=== PATIENT | male | born 1965 ===

== ENCOUNTER 2020-10-24 15:46 | Outpatient (REF) | payer MEDICAID, SELFPAY ==
[2020-10-24 16:22] LABS: COVID-19 Test Negative (Negative)
== END 2020-10-24 15:47 | disposition home or self-care (01) ==
LOC: HO.LAB 15:46
PROVIDERS: Visit Provider Internal Medicine
DX: Z20.822 Contact with and (suspected) exposure to COVID-19 (principal)
CPT/HCPCS: 36415; 87635

== ENCOUNTER 2023-02-04 14:51 | Outpatient (REF) | payer MEDICAID, SELFPAY ==
[2023-02-04 16:09] LABS: Hematocrit 46.2 % (42.0-52.0); Hemoglobin 15.5 g/dl (14.0-18.0)
[2023-02-04 16:20] LABS: Alanine Aminotransferase 45 U/L (0-40); Albumin Level 4.4 g/dL (3.5-5.0); Alkaline Phosphatase 80 U/L (39-117); Amylase 74 U/L (28-100); Aspartate Amino Transferase 28 U/L (5-37); Bilirubin Direct 0.2 mg/dL (0.0-0.5); Bilirubin Total 0.7 mg/dL (0.0-1.0); Cholesterol 205 mg/dL (<200); HDL Cholesterol 43 mg/dL (>40); LDL Cholesterol Calculated 135 mg/dL (<100); Lipase 16 U/L (8-78); Total Protein 7.9 g/dL (6.5-8.0); Triglycerides 139 mg/dL (<150)
[2023-02-05 07:33] LABS: Estimated Average Glucose 120 mg/dL; Hemoglobin A1C 152.6952 umol/L; Hemoglobin A1c % 5.8 % (<6.0)
== END 2023-02-04 14:52 | disposition home or self-care (01) ==
LOC: HO.HHCL 14:51
PROVIDERS: Visit Provider Nurse Practitioner Primary Care
DX: Z00.00 Encounter for general adult medical examination without abnormal findings (principal); Z13.220 Encounter for screening for lipoid disorders; R10.13 Epigastric pain; Z13.1 Encounter for screening for diabetes mellitus
CPT/HCPCS: 36415; 80061; 80076; 82150; 83036; 83690; 85014; 85018

== ENCOUNTER 2023-06-19 16:19 | Outpatient (REF) | payer MEDICAID, SELFPAY ==
--- NOTE | ~2023-06-19 | XR_ITS ---
EXAMINATION: XR CHEST CLINICAL INFORMATION: Cough, chills and shortness of breath. COMPARISON: None available. TECHNIQUE: 2 views of the chest were obtained. FINDINGS: Lungs are well-inflated and clear. Trachea is midline in position. No interstitial disease, consolidation or mass. No pleural effusion or pneumothorax. Cardiac silhouette and pulmonary vessels are normal in size. The mediastinum and erna have normal contour. The opacity at the anterior left base corresponds to the paracardiac fat pad. The visualized bones and upper abdomen are unremarkable. XR/XR chest 2V IMPRESSION: Lungs have a normal appearance. No radiographic evidence of pneumonia.
== END 2023-06-19 16:20 | disposition home or self-care (01) ==
LOC: HO.XRAY 16:19
PROVIDERS: Visit Provider Internal Medicine Geriatric Medicine
DX: J45.41 Moderate persistent asthma with (acute) exacerbation (principal); R06.02 Shortness of breath; R09.89 Other specified symptoms and signs involving the circulatory and respiratory systems
CPT/HCPCS: 71046

== ENCOUNTER 2023-06-26 13:38 | Outpatient (REF) | payer MEDICAID, SELFPAY | END 2023-06-26 13:39 | disposition home or self-care (01) | LOC: HO.HAP 13:38 | PROVIDERS: Visit Provider Emergency Medicine | DX: Z13.89 Encounter for screening for other disorder (principal) ==

== ENCOUNTER 2023-06-28 14:23 | Outpatient (REF) | payer MEDICAID, SELFPAY | END 2023-06-28 14:24 | disposition home or self-care (01) | LOC: HO.HAP 14:23 | PROVIDERS: Visit Provider Emergency Medicine | DX: Z46.1 Encounter for fitting and adjustment of hearing aid (principal) | CPT/HCPCS: V5266; V5299 ==

== ENCOUNTER 2023-08-01 11:45 | Outpatient (REF) | payer MEDICAID, SELFPAY ==
--- NOTE | 2023-08-01 12:51 | MHC.AU.HA3 ---
Hearing Instrument Follow-Up- Binaural Date of Visit: 08/01/23 Right Ear: Satya, Model, Color, Serial Number: Robert Quinones [id number] SN: [id number] Color:Black Hot Walker Repair Warranty: 10/04/2015 Hot Walker Loss and Damage Warranty: 10/03/2014 [facility] Service Plan: Battery Size: 312 Collision Estimator/Slim Tube: 2xS Earmold/Dome/CShell/SlimTip:Medium closed dome with retention tail Type of Wax Guard: CeruStop Dispensed By: [facility] Date of Fittin07/21/2013 Left Ear: Make, Model, Color, Serial Number: Robert Quinones [id number] SN: [id number] Color: Black Hot Walker Repair Warranty: 10/04/2015 Hot Walker Loss and Damage Warranty: 10/03/2014 [facility] Service Plan: Battery Size: 312 Collision Estimator/Slim Tube: 2xS Earmold/Dome/CShell/SlimTip: Medium closed dome with retention tail Type of Wax Guard: CeruStop Dispensed By: [facility] Date of Fittin07/21/2013 Follow-Up Summary: Left aid dropped off with parking lot laborer broken off at attachment point to hearing aid. No 2xS in stock. Ordered from [employer]. Aid is in repair drawer waiting for parking lot laborer. Recommendations: Recommendations: Patient will be contacted when materials have arrived. Diagnosis Code(s): Primary Diagnosis: H90.3 Signature: Provider: Soto Brown, [facility]
== END 2023-08-01 11:46 | disposition home or self-care (01) ==
LOC: HO.HAP 11:45
PROVIDERS: Visit Provider Emergency Medicine
DX: Z13.89 Encounter for screening for other disorder (principal)

== ENCOUNTER 2023-08-07 13:44 | Outpatient (REF) | payer MEDICAID, SELFPAY | END 2023-08-07 13:45 | disposition home or self-care (01) | LOC: HO.HAP 13:44 | PROVIDERS: Visit Provider Emergency Medicine | DX: Z46.1 Encounter for fitting and adjustment of hearing aid (principal); H90.3 Sensorineural hearing loss, bilateral | CPT/HCPCS: 92592; V5299 ==

== ENCOUNTER 2023-09-06 13:57 | Outpatient (REF) | payer MEDICAID, SELFPAY ==
--- NOTE | ~2023-09-06 | XR_ITS ---
EXAMINATION: XR CHEST CLINICAL INFORMATION: Patient states asthma for 2 years and not getting better. COMPARISON: 06/19/2023 TECHNIQUE: 2 views of the chest were obtained. FINDINGS: Lung volumes are low. There is no gross pneumothorax. Cardiomediastinal silhouette appears similar, allowing for lower lung volumes. There appears to be increased prominence of diffuse interstitial lung markings although this could be accentuated by low lung volumes; correlation with clinical exam recommended to determine further management, particularly if there is concern for atypical infectious/inflammatory process or mild vascular congestion. No pleural effusion. Mild degenerative changes in the thoracic spine. XR/XR chest 2V IMPRESSION: There appears to be increased prominence of diffuse interstitial lung markings although this could be accentuated by low lung volumes; correlation with clinical exam recommended to determine further management, particularly if there is concern for atypical infectious/inflammatory process or mild vascular congestion.
== END 2023-09-06 13:58 | disposition home or self-care (01) ==
LOC: HO.XRAY 13:57
PROVIDERS: Visit Provider Registered Nurse
DX: R05.3 Chronic cough (principal)
CPT/HCPCS: 71046

== ENCOUNTER 2023-11-07 13:39 | Outpatient (AMB) | payer MEDICAID, SELFPAY ==
[2023-11-07 14:24] VITALS: BP 120/74; PULSE 70; O2SAT 98; BMI 32.6
--- NOTE | 2023-11-07 14:24 | A.OFFVIS_ITS ---
Vital Signs 11/07/23 14:24 Height 5 ft 6.5 in Weight 205 lb 0.478 oz BMI 32.6 BP 120/74 Blood Pressure Location Lt brachial Position Sitting Pulse 70 Pulse Source Pulse Oximeter Pulse Oximetry (%) 98 Oxygen Delivery Method Room Air Intake Visit Reasons: Asthma Intake Note: pt is here as a new patient for asthma, and question of Sleep apnea . He has had flare ups, pt has a nebulizer and albuterol hfa. Glassine Machine Tender Required: No Allergies No Known Allergies Allergy (Mild, Unverified 11/07/23 15:10) NONE Medication List - Last Reconciled 11/07/23 by Raghav Lamb MD albuterol sulfate mg inhalation Q4-6H PRN albuterol sulfate 90 mcg/actuation (Ventolin HFA) 2 puffs inhalation Q6H atorvastatin 10 mg PO BEDTIME budesonide-formoterol 80-4.5 mcg/actuation (Symbicort) 2 puffs inhalation BID montelukast 10 mg PO DAILY omeprazole 20 mg PO BID sildenafil (Viagra) 100 mg PO DAILY PRN Do you need a note to return to daycare/school/sports/work: No HPI HPI Asthma: Details: 58 years old gentleman is being seen for the 1st time for bronchial asthma and also for possible sleep apnea. He is a musician by profession, most deep plays piano, and goes with bands off and on. Due to hearing loss he is retired on disability. He is single but now for the past 9 months has a girlfriend living with him. He gives history of bronchial asthma since childhood. No history of any prolonged attacks or hospitalizations. His symptoms are worse in early summer and late summer, but he is relatively better during winter time. Over the years he has been using albuterol inhaler or in the nebulizer as needed. Currently he has the Symbicort 80-4.5 and montelukast 10 mg daily on his list of meds but he does not use them all as his symptoms are worse. He does get short of breath if he has to walk up hill or climbs stairs. He has very little cough. He is a non-cigarette smoker but admits of smoking weed a few times every day . For the past few years he has put on weight, almost 20-30 lb, and he has history of waking up at night with choking feeling. According to his girlfriend he does snore at night. He feels tired during the daytime, and tends to doze of when he is playing piano . Also in the afternoon and late evenings he feels very sleepy. *SPEAKS A FEW WORDS OF UKRAINIAN / LEARNED WHEN HE WAS WORKING AT [employer]. REPLACED BY [facility] Medical History (Updated 11/07/23 @ 15:28 by Raghav Lamb MD) Asthma KVNG (obstructive sleep apnea) Somnolence, daytime Social History Patient Tobacco Use Status: Former Tobacco user Review of Systems Const All systems reviewed & are unremarkable except as noted in HPI and below Eyes Reports no additional complaints ENT Denies Normal hearing present (Significant hearing loss and he uses hearing aids) Card Denies chest pain, Denies syncope, Denies irregular heart rhythm and Denies leg edema Resp Reports as per HPI GI Reports no additional complaints Reports erectile dysfunction Musc Reports no additional complaints Skin/Breast Reports system reviewed and no additional complaints, except as documented Neuro Denies Normal hearing present (Significant hearing loss and he uses hearing aids) and Denies syncope Psych Reports no additional complaints Endo Reports no additional complaints Physical Exam Vital Signs: Last Vital Signs Pulse 70 11/07/23 14:24 BP 120/74 11/07/23 14:24 Pulse Ox 98 11/07/23 14:24 Oxygen Delivery Method Room Air 11/07/23 14:24 BMI result Body Mass Index 32.6 Const General: healthy appearing (Except being overweight), comfortable, no acute distress, alert and awake Orientation/consciousness: patient oriented x3 HEENT Head: Yes normal to inspection General nose exam: No nasal polyps present and No nasal discharge present Face and sinus: Yes sinuses nontender Mouth: oropharynx abnormals (Tongue is placed back, Abdullahi pharynx narrow Mallampati class 4 ) Throat: Yes posterior oropharynx normal Eyes General: appearance normal, both eyes and all related structures Neck Neck: Yes normal visual inspection, Yes no lymphadenopathy, Yes trachea midline, Yes no JVD and Yes other (Neck size 16-1/2 inch) Thyroid: Thyroid normal Chest Chest palpation & inspection: normal inspection of the chest, normal palpation of entire chest wall and no tenderness Resp Other: Percussion note is resonant, breath sounds are slightly distant, but mostly clear. No wheezes or rhonchi are heard. Cardio Palpation: normal PMI Rate: regular rate Rhythm: regular rhythm Heart sounds: no gallops and no murmurs Peripheral pulses: Peripheral pulses 2+ throughout GI Palpation (GI): Soft to palpation, nontender, No hepatosplenomegaly present and no masses Auscultation: normal bowel sounds Back/Spine/Pelvis Thoracic/Lumbar Spine: thoracic and lumbar spine normal to inspection Skin General skin exam: no rashes or lesions noted Neuro General: patient oriented x3, gait normal and no focal motor deficits Cranial nerves: No Normal hearing present (Significant hearing loss and he uses hearing aids) Extrem General: Yes normal to inspection, Yes no clubbing, cyanosis or edema and Yes no calf tenderness Psych Appearance: grossly normal and well kempt Speech and movement: Normal speech and movement present Assessment & Plan Assessment & Plan (1) Somnolence, daytime: Comment: Patient does feel tired with, foggy brain and tendency to fall asleep especially in the afternoons. Code(s): R40.0 - Somnolence Category: Medical Plan: The needs to be checked for sleep apnea . (2) KVNG (obstructive sleep apnea): Comment: He is moderately overweight, has narrow oropharynx, history of waking up with choking feeling at night , History of sleepiness during the daytime. These features are all suggestive of obstructive sleep apnea. Code(s): G47.33 - Obstructive sleep apnea (adult) (pediatric) Category: Medical Plan: Home-based sleep study is ordered (3) Asthma: Comment: Chronic intermittent bronchial asthma, probably due to environmental allergies. Mild and controlled at this time. Code(s): J45.909 - Unspecified asthma, uncomplicated Category: Medical Plan: Complete pulmonary function test is ordered. Will decide about appropriate meds after the PFT results In the meantime use albuterol HFA 2 puffs Q 4-6 hours p.r.n. when outdoors Or albuterol in the nebulizer Q 4-6 hours p.r.n. when at home. Do not use Symbicort or montelukast at this time Orders: Orders PFT pulmonary function test Today J45.909 - Unspecified asthma, uncomplicated RT home sleep study Today G47.33 - Obstructive sleep apnea (adult) (pediatric), R40.0 - Somnolence Coding Level of Care Code New Pt Level 4 (04461) Diagnoses Somnolence, daytime R40.0 KVNG (obstructive sleep apnea) G47.33 Asthma J45.909
== END 2023-11-07 15:17 | disposition home or self-care (01) ==
PROVIDERS: PCP Emergency Medicine; Referring Provider Registered Nurse; Visit Provider Internal Medicine
DX: R40.0 Somnolence (principal); G47.33 Obstructive sleep apnea (adult) (pediatric); J45.909 Unspecified asthma, uncomplicated
CPT/HCPCS: 99204

== ENCOUNTER → 2023-11-07 13:39 | Outpatient (BNVA) | payer MEDICAID, SELFPAY | PROVIDERS: PCP Emergency Medicine; Referring Provider Registered Nurse; Visit Provider Internal Medicine | DX: J45.909 Unspecified asthma, uncomplicated (principal); G47.33 Obstructive sleep apnea (adult) (pediatric); R40.0 Somnolence; F12.90 Cannabis use, unspecified, uncomplicated; Z79.899 Other long term (current) drug therapy | CPT/HCPCS: 99202 ==

== ENCOUNTER 2023-12-04 15:14 | Outpatient (REF) | payer MEDICAID, SELFPAY | END 2023-12-04 15:15 | disposition home or self-care (01) | LOC: HO.HAP 15:14 | PROVIDERS: Visit Provider Nurse Practitioner Primary Care | DX: Z13.89 Encounter for screening for other disorder (principal) ==

== ENCOUNTER 2024-03-19 13:18 | Outpatient (REF) | payer MEDICAID, SELFPAY ==
--- NOTE | 2024-03-19 14:16 | MHC.AU.MED ---
Medical Clearance for Hearing Instrumentation Date: 03/19/24 Patient Name: Chaparro Jane Date of : 1965 Primary Care Provider: Migdalia Cox NP We have seen your patient on 03/19/24 and have determined that they are a candidate for amplification (See accompanying report). Specifically, they would benefit from: Hearing aid use in both ears There is a statute that addresses Medical Evaluation Requirements prior to fitting a patient with a hearing aid. According to [place] statute 265 CMR:6.03(1), (a) General. Except as provided in 265 CMR 6.03(1)(b), a hearing care practitioner shall not sell a hearing aid unless the prospective user has presented to the hearing care practitioner a written statement signed by a licensed physician that states that the patient's hearing loss has been medically evaluated and the patient may be considered a candidate for a hearing aid. The medical evaluation must have taken place within the preceding six months. Please note: Due to the [place] Statute referenced above, we cannot accept a signature other than that of a licensed physician. WEIGHT LOSS PHYSICIAN and PA signatures cannot be accepted. I am in agreement with the above recommendation. There is no medical contraindication for hearing instrumentation. Physician Signature Date Physician Name (Printed)
--- NOTE | 2024-03-19 14:36 | MHC.AU.HA1 ---
Hearing Aid Evaluation Date of Visit: 03/19/24 Historical Information: Description of Hearing: Mild sloping to moderately-severe sensorineural hearing loss rising to normal hearing, bilaterally Current personal amplification information: Phonak Audeo [id number] fit in August 2013 Summary: Accompanied by girlfriend, Marisela. Ready for new HAs. Left RITTER in need of repair as noted in December 2023 (still in Repair Drawer). Right RITTER reportedly stopped working yesterday, did not bring to this appointment. Given age of current devices, new HAs recommended. Chaparro opted for same style, rechargeable HAs. Will start with dome but discussed adding EMs, if needed. Hearing Aid Prescription: Based on the individual?s shared listening needs, communication environments, dexterity, desire for connectivity, and personal preferences, the following prescription for amplification has been made: Right ear: Make, Model, Color: Phonak Audeo I50-R Color: Black Battery Size: Rechargeable Rn Telephonic/Slim Tube: 2M Type of Earmold/Dome/CShell/SlimTip: Small power dome Left ear: Left ear prescription to be same as Right Hearing Aid above: Make, Model, Color: Phonak Audeo I50-R Color: Black Battery Size: Rechargeable Rn Telephonic/Slim Tube: 2M Type of Earmold/Dome/CShell/SlimTip: Small power dome Accessories/Assistive Technology: Insurance Claim Representative Plan of Care: Patient wishes to purchase hearing aids as prescribed Action Taken/Action Needed: Medical Clearance to be requested from PCP/ENT. Hearing Instrument Fitting to be scheduled when materials arrive Primary Diagnosis: H90.3 Bilateral Sensorineural Hearing Loss Signature: Provider: Soto Callaway, [facility]
== END 2024-03-19 13:19 | disposition home or self-care (01) ==
LOC: HO.SH 13:18
PROVIDERS: Visit Provider Nurse Practitioner Primary Care
DX: Z01.118 Encounter for examination of ears and hearing with other abnormal findings (principal); Z46.1 Encounter for fitting and adjustment of hearing aid; H90.3 Sensorineural hearing loss, bilateral
CPT/HCPCS: 92557; 92591

== ENCOUNTER 2024-04-02 12:43 | Outpatient (REF) | payer MEDICAID, SELFPAY ==
--- NOTE | 2024-04-02 13:42 | MHC.AU.HA2 ---
Hearing Instrument Fitting- Adult- Binaural Date of Visit: 04/02/24 Hearing Instruments Dispensed: Right Ear: Satya, Model, Color, Serial Number: Robert Quinones [id number] SN: [id number] Color: Black Emr Trainer Repair Warranty: 05/01/2027 Emr Trainer Loss and Damage Warranty: 05/01/2027 [facility] Service Plan: 04/02/2025 Battery Size: Rechargeable Core Machine Operator/Slim Tube: 2M Earmold/Dome/CShell/SlimTip: Small power dome (no retention tail) Type of Wax Guard: CeruStop Left Ear: Make, Model, Color, Serial Number: Robert Quinones [id number] SN: [id number] Color: Black Emr Trainer Repair Warranty: 04/23/2027 Emr Trainer Loss and Damage Warranty: 04/23/2027 [facility] Service Plan: 04/02/2025 Battery Size: Rechargeable Core Machine Operator/Slim Tube: 2M Earmold/Dome/CShell/SlimTip: Small power dome (no retention tail) Type of Wax Guard: CeruStop Accessories/Assistive Technology: [employer]ak [employer] Service Station Manager Ease SN: [id number] Summary of Fitting: Performed electroacoustic analysis prior to appointment. Ran feedback analyzer and real ear measures. Comfortable at real ear settings. Reviewed care, use, and rechargeability including manually turning on/off, VC use, and changing domes and wax guards. As a previous RITTER user, otherwise familiar with general maintenance, insertion/removal, etc. Also noticed immediate decrease in intensity of tinnitus. Paired to cellphone. Chaparro very grateful for HAs. Gave old, unrepaired left Audeo [id number] hearing aid, which was dropped off in Dec 2023, back to Chaparro. Scheduled follow up; however, may cancel if all is well. Recommendations: A hearing instrument follow-up was scheduled. Diagnosis Code(s): Primary Diagnosis: H90.3 Bilateral Sensorineural Hearing Loss Signature: Provider: Soto Callaway, [facility]
--- OUTSIDE RECORDS SUMMARY | 2024-04-02 16:36 | XMS_ITS | Encounter Summary ---
Author Organization [employer] Address [address] [facility] 7 [place] [address] Care Team Providers Care Termite Control Service Representative Name Role Phone Migdalia Cox Primary Care Provider [phone] Reason for Visit * Reason Onset Date Comments Created in error 09/17/2023 Encounter Details Date Type Department Care Team ([facility] st Contact Info) Description 09/17/2023 Telephone [facility] MEDICINE [address] [place], [place] [phone] Migdalia Cox ANP [address] [place] [address] Created in error Social History Tobacco Use Types Packs/Day Years Used Date Smoking Tobacco: Every Day Passive Smoke Exposure: Never Smokeless Tobacco: Never Depression Answer Date Recorded Patient Health Questionnaire-9 Score 16 01/28/2023 Patient Health Questionnaire-9 Score 16 01/28/2023 Last PHQ-9: Questionnaire Data Not on file 1 03/30/2022 Housing Stability Answer Date Recorded What is your housing situation today? I have ninoska major 01/28/[address] you li ve. Do you have problems with any of the following? None of the above 01/28/2023 Food Insecurity Answer Date Recorded Within the past 12 months, y ou worried that your food would run out before you got money to buy more: Never True 01/28/2023 Within the past 12 months,th e food you bought just didn't last and you didn't have enough money to get more: Never True Transportation Answer Date Recorded In the past 12 months, has l ack of transportation kept you from medical appts, meetings, work or from getting things needed for daily living? No 01/28/2023 Utilities Answer Date Recorded In the past 12 months, has t he electric, gas, oil or water company threatened to shut off services in your home? No 01/28/2023 Depression Answer Date Recorded Patient Health Questionnaire-2 Score 6 01/28/2023 Sex and Gender Information Value Date Recorded Sex Assigned at Male 01/01/2022 10:14 AM EDT Legal Sex Male 10:14 AM EDT Gender Identity Male 01/01/2022 10:14 AM EDT Sexual Orientation Straight 01/01/2022 10 :14 AM EDT documented as of this encounter Plan of Treatment Not on file documented as of this encounter Visit Diagnoses Not on filedocumented in this encounter Additional Health Concerns Assessment Noted Time PHQ-9 Depression Total Score: 16 023 2:01 PM EST documented as of this encounter Care Teams Termite Control Service Representative Relationship Specialty Start Date End Date Migdalia Cox ANP [address] [place] [id number] PCP - General Family Medicine 12/17/22 documented as of this encounter
--- OUTSIDE RECORDS SUMMARY | 2024-04-02 16:36 | XMS_ITS | Encounter Summary ---
Author Organization [employer] Address [address] [facility] 7t [place] [address] Care Team Providers Care Sales Agent Marine Insurance Name Role Phone Migdalia Cox Primary Care Provider [phone] Reason for Visit * Reason Comments Med Refill Encounter Details Date Type Department Care Team ([facility] Contact Info) Description 09/16/2023 Refill [facility] MEDICINE [address] [place], [place] [phone] Migdalia Cox ANP [address] [place] [address] Impotence of organic origin Social History Tobacco Use Types Packs/Day Years [...] documented as of this encounter Visit Diagnoses Diagnosis Impotence of organic origin documented in this encounter Additional Health Concerns Assessment Noted Time PHQ-9 Depression Total Score: 16 023 2:01 PM EST documented as of this encounter Care Teams Sales Agent Marine Insurance Relationship Specialty Start Date End Date Migdalia Cox ANP [address] [place] [phone] PCP - General Family Medicine 12/17/22 documented as of this encounter
--- OUTSIDE RECORDS SUMMARY | 2024-04-02 16:36 | XMS_ITS | Encounter Summary ---
Author Organization [employer] Address [address] [facility] 7t [place] [address] Care Team Providers Care Postal Service Mail Processor Name Role Phone Migdalia Cox Primary Care Provider [phone] Reason for Visit * Reason Comments Med Refill Encounter Details Date Type Department Care Team ([facility] Contact Info) Description 08/30/2023 Refill [facility] MEDICINE [address] [place], [place] [phone] Migdalia Cox ANP [address] [place] [address] Impotence of organic origin Social History Tobacco [...] documented as of this encounter Care Teams Postal Service Mail Processor Relationship Specialty Start Date End Date Migdalia Cox ANP [address] [place] [id number] PCP - General Family Medicine 12/17/22 documented as of this encounter
--- OUTSIDE RECORDS SUMMARY | 2024-04-02 16:36 | XMS_ITS | Encounter Summary ---
Author Organization [employer] Address [address] [place] [address] 7 [place] [address] Care Team Providers Care Dowel Pin Man Name Role Phone Migdalia Cox Primary Care Provider [phone] Reason for Visit * Reason Comments Med Refill Encounter Details Date Type Department Care Team ([facility] Contact Info) Description 04/16/[address] [facility] MEDICINE [address] [place], [place] [phone] Migdalia Cox ANP [address] [place] [address] Impotence of organic origin Social History Tobacco Use Types Packs/Day Years Used Date Smoking Tobacco: Never Passive Smoke Exposure: Never Smokeless Tobacco: Never [...] documented as of this encounter Care Teams Dowel Pin Man Relationship Specialty Start Date End Date Migdalia Cox ANP [address] [place] [phone] PCP - General Family Medicine 12/17/22 documented as of this encounter
--- OUTSIDE RECORDS SUMMARY | 2024-04-02 16:36 | XMS_ITS | Encounter Summary ---
Author Organization [employer] Address [address] [facility] 7t [place] [address] Care Team Providers Care Resource Development Director Name Role Phone Migdalia Cox Primary Care Provider [phone] Reason for Visit * Reason Comments Med Refill Encounter Details Date Type Department Care Team ([facility] [place] [facility] Contact Info) Description 12/27/2023 Refill [facility] MEDICINE [address] [place], [place] [phone] Vanesa John MD [address] [place], [place] [phone] Mild persistent asthma without complication Social History Tobacco Use Types Packs/Day Years Used Date Smoking Tobacco: Former Cigarettes Passive Smoke Exposure: Never Smokeless Tobacco: Never Alcohol Use Standard Drinks/Week Comments Never 0 (1 standard drink = 0.6 oz pur e alcohol) Depression Answer Date Recorded Patient Health Questionnaire-9 Score 4 12/20/2023 Patient Health Questionnaire-9 Score 4 12/20/2023 Last PHQ-9: Questionnaire Data Not on file 1 Housing Stability Answer Date Recorded What is [...] Answer Date Recorded Patient Health Questionnaire-2 Score 1 12/20/2023 Sex and Gender Information Value Date Recorded Sex Assigned at Male 01/01/2022 10:14 AM EDT Legal Sex Male 10:14 AM EDT Gender Identity Male 01/01/2022 10:14 AM EDT Sexual Orientation Straight 01/01/2022 10 :14 AM EDT documented as of this encounter Plan of Treatment Not on file documented as of this encounter Visit Diagnoses Diagnosis Mild persistent asthma without complication documented in this encounter Additional Health Concerns Assessment Noted Time PHQ-9 Depression Total Score: 4 12/20/19 24 3:05 PM EDT documented as of this encounter Care Teams Resource Development Director Relationship Specialty Start Date End Date Migdalia Cox ANP [address] [place] [phone] PCP - General Family Medicine 12/17/22 documented as of this encounter
--- OUTSIDE RECORDS SUMMARY | 2024-04-02 16:36 | XMS_ITS | Encounter Summary ---
Author Organization [employer] Address [address] [place] [address] 7 [place] [address] Care Team Providers Care Caster Helper Name Role Phone Migdalia Cox Primary Care Provider [phone] Reason for Visit * Reason Onset Date Comments Durable Medical Equipment 09/23/2023 Encounter Details Date Type Department Care Team ([facility] st Contact Info) Description 09/23/2023 Telephone [facility] [address] [place], [place] [phone] Migdalia Cox ANP 230 [place] [address] Durable Medical Equipment Social History Tobacco Use Types Packs/Day Years [...] AM EDT documented as of this encounter Miscellaneous Notes * Telephone Encounter - Patrice Micah - 09/23/2023 4:45 PM EDT Tc from spouse calling to remind pcp of Nebulizer machine, she wants to make sure pcp is aware of request. If any questions and or for further discussion you can contact pt/spouse at [phone]. documented in this encounter Plan of Treatment Not on file documented as of this encounter Visit Diagnoses Not on filedocumented in this encounter Additional Health Concerns Assessment Noted Time PHQ-9 Depression Total Score: 16 023 2:01 PM EST documented as of this encounter Care Teams Caster Helper Relationship Specialty Start Date End Date Migdalia Cox ANP [address] [place] [address] PCP - General Family Medicine 12/17/22 documented as of this encounter
--- OUTSIDE RECORDS SUMMARY | 2024-04-02 16:36 | XMS_ITS | Clinical Summary ---
Author Organization [facility] Address [address] [place] [address] Care Team Providers Care Looping Inspector Name Role Phone Unavailable Primary Care Provider Unavailabl e Social History Tobacco Use Types Packs/Day Years Used Date Smoking Tobacco: Never Assessed Sex and Gender Information Value Date Recorded Sex Assigned at Not on file Gender Identity Not on file Sexual Orientation Not on file Plan of Treatment Health Maintenance Due Date Last Done Comments DTaP,Tdap,and Td Vaccines (1 - Tdap) 09/17/1986 Hepatitis B Vaccines (1 of 3 - 19+ 3-dose series) 09/17/1986 Zoster Vaccines (1 of 2) 09/17/2017 Cholesterol Screening (Lipid Panel) 01/31/2022 Colorectal Cancer Screening: Colonoscopy 01/31/2022 Depression Screening 01/31/2022 HIV Screening 01/31/2022 Hepatitis C Screening 01/31/2022 Social Influencers of Health Screening 01/31/2022 COVID-19 Vaccine (2023-2 5 season) 2023 Influenza Vaccine (#1) 2023 HIB Vaccines Aged Out No longer eligi ble based on patient's age to complete this topic HPV Vaccines Aged Out No longer eligi ble based on patient's age to complete this topic Hepatitis A Vaccines Aged Out No long er eligible based on patient's age to complete this topic IPV Vaccines Aged Out No longer eligi ble based on patient's age to complete this topic MMR Vaccines Aged Out No longer eligi ble based on patient's age to complete this topic Meningococcal ACWY Vaccine Aged Out N o longer eligible based on patient's age to complete this topic Pneumococcal Vaccine: Pediat rics (0 to 5 Years) and At-Risk Patients (6 to 64 Years) Aged Out No longer eligible b ased on patient's age to complete this topic RSV Immunization Patients Un silvia 20 months Aged Out No longer eligible b ased on patient's age to complete this topic Varicella Vaccines Aged Out No longer eligible based on patient's age to complete this topic
--- OUTSIDE RECORDS SUMMARY | 2024-04-02 16:36 | XMS_ITS | Clinical Summary ---
Author Organization [employer] Address [address] [place] [address] 7t [place] [address] Care Team Providers Care Household Coordinator Name Role Phone Migdalia Cox Primary Care Provider [phone] Allergies No known active allergies Medications Blood Pressure Monitoring (Omron 3 Series BP Monitor) device USE TO CHECK BLOOD PRESSURE DAILY 2 Active fluticasone (Flonase) 50 MCG/ACT nasal spray Administer 1 spray into affected nostril(s) every 12 (twelve) hours. 1 Active budesonide-formot tirso (Symbicort) 80-4.5 MCG/ACT inhalerIndication s:Asthma, unspecified asthma severity, unspecified whether complicated, unspecified whether persistent Inhale 2 puffs twie daily. Rinse mouth with water after use to reduce aftertaste and incidence of candidiasis. Do not swallow. 1 each 4 Active montelukast (Singulair) 10 MG tabletIndications :Moderate persistent asthma without complication Take 1 tablet (10 mg) by mouth Once per day. 90 tablet 3 4 09/18/19 25 Active atorvastatin (Lipitor) 10 MG tabletIndications :Dyslipidemia TAKE 1 TABLET BY MOUTH AT BEDTIME 90 tablet 3 4 Active omeprazole (PriLOSEC) [address] capsuleIndication s:Peptic ulcer disease TAKE 1 CAPSULE (20 MG) BY MOUTH BEFORE BREAKFAST AND BEFORE EVENING MEAL. DO NOT CRUSH OR CHEW. 180 capsule 1 4 Active albuterol (Ventolin HFA) 108 (90 Base) MCG/ACT inhalerIndication s:Moderate persistent asthma without complication,Dysl ipidemia Inhale 2 puffs every 6 (six) hours if needed for wheezing. 18 g 3 4 Active albuterol (2.5 MG/3ML) 0.083% nebulizer solution INHALE 1 AMPULE USING A NEBULIZER EVERY 4 TO 6 HOURS NEEDED 90 mL 3 4 Active sildenafil (Viagra) 100 MG tabletIndications :Impotence of organic origin TAKE 1 TABLET 1 HOUR BEFORE SEXUAL RELATIONS ONCE DAILY NEEDED. 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 Resolved Problems Problem Noted Date Diagnosed Date Resolved Date Combined drug dependence excluding opioids 08/29/2011 01/23/2024 Encounters Date Type Department Care Team Description 03/06/2024 Patient Outreach [facility] [address] [place] [address] Migdalia Cox ANP Pre-visit Planning (Pre-visit planning - LVM ) 02/17/2024 Telephone [facility] [address] [place] [address] Migdalia Cox ANP 02/17/2024 Telephone [facility] [address] [place] [address] Migdalia Cox ANP 02/06/2024 Telephone [facility] [address] [place] [address] Migdalia Cox ANP Referral 01/18/2024 Refill [facility] [address] [place] [address] Migdalia Cox ANP Impotence of organic origin 01/10/2024 Refill [facility] [address] [place] [address] Migdalia Cox ANP 01/07/2024 Telephone [facility] [address] [place] [address] Jonah LisandroLYUDMILA marvin March recall from Last 3 Months Immunizations Name Administration Dates Next Due Hep B, Adolescent or Pediatric 12/26/2001,2001 Influenza injectable quadrivalent preservative f ree 04/09/2019 Pneumococcal Polysaccharide PPSV23 10/23/2007 TD (adult), 2 Lf tetanus tox oid, preservative free, adsorbed 10/23/2007,09/23/1995 Tdap 04/09/2019 Zoster, Recombinant 09/20/2021 Social History Tobacco Use Types Packs/Day Years Used Date Smoking Tobacco: Former Cigarettes Passive Smoke Exposure: Never Smokeless Tobacco: Never Alcohol Use Standard Drinks/Week Comments Not Currently 0 (1 standard drink = 0.6 oz [...] Orientation Straight 01/01/2022 10 :14 AM EDT Last Filed Vital Signs Vital Sign Reading Time Taken Comments Blood Pressure 132/84 12/20/2023 2:48 PM EDT Pulse 82 12/20/2023 2:28 PM EDT Temperature 36.8 ??C (98.3 ??F) 12/20/2023 2:28 PM ED T Respiratory Rate 18 12/20/2023 2:28 PM EDT Oxygen Saturation 98% 12/20/2023 2:28 PM EDT Inhaled Oxygen Concentration - - Weight 95 kg (209 lb 6.4 oz) 12/20/2023 2:28 PM EDT Height 167.6 cm (5' 6 ) 12/20/2023 2:28 PM EDT Body Mass Index 33.8 12/20/2023 2:28 PM EDT Plan of Treatment Health Maintenance Due Date Last Done Comments CT Colonography 1967 Colonoscopy 1967 Colorectal Cancer Screening 1967 Dental Oral Exam 1967 Dental Prophylaxis 1967 Dental X-Ray: Bitewings 1967 FIT DNA/Cologuard 1967 FIT 1967 FOBT 1967 Sigmoidoscopy 1967 Hepatitis C Screening 09/17/1985 Hepatitis B Vaccines (1 of 3 - 19+ 3-dose series) 09/17/1986 12/26/2001, 07/15/2001 Pneumococcal Vaccine: Pediatrics (0 to 5 Years) and At-Risk Patients (6 to 49) Years) (2 of 2 - PCV) 10/22/2008 10/23/2007 Zoster Vaccines (2 of 2) 11/15/2021 09/20/2021 COVID-19 Vaccine ( - 2023-2 5 season) 2023 11/29/2020, 10/18/2020 Influenza Vaccine (#1) 2023 04/09/2019 SDOH Screening 01/29/2024 01/28/2023 Depression Screening 12/19/2024 12/20/2023, 12/20/2023 Alcohol/Substance Use Screening 01/22/2025 01/23/2024 Tobacco Screening 01/22/2025 01/23/2024 Dental X-Ray: Full Mouth 11/01/2026 11/01/2023 Lipid Panel 02/05/2028 02/04/2023, 08/24/2021 DTaP/Tdap/Td Vaccines (2 - T d or Tdap) 04/09/2029 04/09/2019, 10/23/2007, 09/23/1995 RSV Patients and Patients Aged 60 years or older (1 - 1-dose 75+ series) 09/17/2042 HIV Screening Completed 10/04/2021 HIB Vaccines Aged Out No longer eligi [...] patient's age to complete this topic Meningococcal Vaccine Aged Out No alexis carlos eligible based on patient's age to complete this topic RSV under 20 months Aged Out No longe r eligible based on patient's age to complete this topic Rotavirus Vaccines Aged Out No longer eligible based on patient's age to complete this topic Procedures Procedure Name Priority Date/Time Associated Diagnosis Comments PANORAMIC RADIOGRAPHIC IMAGE Routine 11/01/2023 10:00 AM EDT LIPID PANEL, STANDARD Routine 02/04/2023 2:55 PM EST Lipid screening HIV 1/2 ANTIGEN/ANTIBODY, FOURTH GENERATION W/RFL Routine 10/04/2021 4:52 PM EDT from Last 3 Months or Most Recently Relevant to Health Maintenance Results * (ABNORMAL) Lipid Panel, Standard (02/04/2023 2:55 PM EST) Triglycerides 139 <150 mg/dL [facility] Comment:Desirable Triglyceri de: less than 150 mg/dLBorderline High Triglyceride 150-199 mg/dLHigh Triglyceride: 200-499 mg/dLVery High Triglyceride: greater than or equal to 5OO mg/dL Cholesterol 205(H) <200 mg/dL [facility] Comment:Desirable Cholestero l: less than 200 mg/dLBorderline High Cholesterol: 200-239 mg/dLHigh Cholesterol: greater than 239 mg/dL LDL Cholesterol Calculated 135(H) <100 mg/dL [facility] Comment:Desirable LDL: less than 100 mg/dLNear Optimal/Above Optimal LDL: 110- 129 mg/dLBorderline High LDL: 130-159 mg/dLHigh LDL: 160-189 mg/dLVery High LDL: greater than or equal to 190 mg/dL HDL Cholesterol 43 >40 mg/dL [facility] Comment:Desirable HDL: great er than 40 mg/dL Note: This HDL assay may give artificially low results in patients with liver disease. Blood Venous blood specimen / Unknown 02/04/2023 2:55 PM EST 02/04/2023 3:49 PM EST [facility] BLOOD ORDERABLES Final Resul t [facility] [address] [place] [phone] * HIV 1/2 ANTIGEN/ANTIBODY,FOURTH GENERATION W/RFL (10/04/2021 4:52 PM EDT) Pathologist [facility] HIV-1/2 ANTIGEN AND ANTIBODIES, 4TH GENERATION W/ REFLEX NON-REACT OSCAR NON-REACT OSCAR [facility] Comment: HIV-1 antigen and HIV-1/HIV-2 antibodies were not detected. There is no laboratory evidence of HIV infection. ?? PLEASE NOTE: This information has been disclosed to you from records whose confidentiality may be protected by state law. ??If your state requires such protection, then the state law prohibits you from making any further disclosure of the information without the specific written consent of the person to whom it pertains, or as otherwise permitted by law. A general authorization for the release of medical or other information is NOT sufficient for this purpose. ? For additional information please refer to http://education.iSentium/faq/KQH784 (This link is being provided for informational/ educational purposes only.) ? The performance of this assay has not been clinically validated in patients less than 2 years old. ?? 10/04/2021 4:52 PM EDT us Anitra Delgado [place] [employer] LAB BLOOD ORDERABLES Final Result [facility] [address] [place] [id number], from Last 3 Months or Most Recently Relevant to Health Maintenance Insurance [facility] MEDICAID STAND ADULT Care Teams Household Coordinator Relationship Specialty Start Date End Date Migdalia Cox ANP [address] [place] [address] PCP - General Family Medicine 12/17/22
--- OUTSIDE RECORDS SUMMARY | 2024-04-02 16:36 | XMS_ITS | Encounter Summary ---
Author Organization [employer] Address [address] [place] [address] [place] [address] Care Team Providers Care Intermediate Card Tender Name Role Phone Anitra Toscano Primary Care Provider [phone] Laura Doan SUPERVISOR METER REPAIR SHOP Primary Care Provider [phone] Migdalia Cox Primary Care Provider [phone] Reason for Visit * Reason Onset Date Comments Letter for School/Work 09/11/2022 Encounter Details Date Type Department Care Team (Late st Contact Info) Description 09/11/[address] [facility] [address] [place] [address] Anitra Toscano FNP [address] [place] [address] Dept [place] [address] Letter for School/Work Social History Tobacco Use Types Packs/Day Years Used Date Smoking Tobacco: Never Passive Smoke Exposure: Never Smokeless Tobacco: Never Sex and Gender Information Value Date Recorded Sex Assigned at Male 01/01/2022 10:14 AM EDT Legal Sex Male 10:14 AM EDT Gender Identity Male 01/01/2022 10:14 AM EDT Sexual Orientation Straight 01/01/2022 10 :14 AM EDT COVID-19 Exposure Response Date Recorded In the last 10 days, have yo u been in contact with someone who was confirmed or suspected to have Coronavirus/COVID-19? No / Unsure 09/10/2022 2:55 PM EDT documented as of this encounter Miscellaneous Notes * Telephone Encounter - Mallory Lizarraga - 09/11/2022 3:01 PM EDT Tc from pt requesting a letter stating his condition with bronchitis. Forgot to mention to doctor on 09/10 walk in clinic appointment. Any questions, Please contact pt at [phone] documented in this encounter Plan of Treatment Not on file documented as of this encounter Visit Diagnoses Not on filedocumented in this encounter Care Teams Intermediate Card Tender Relationship Specialty Start Date End Date Anitra Toscano FNP PCP - General Family Medicine 12/23/20 12/06/22 Laura Doan NP [address] [place] [address] PCP - General Family Medicine 12/07/22 12/16/22 Migdalia Cox ANP [address] [place] [address] PCP - General Family Medicine 12/17/22 documented as of this encounter
--- OUTSIDE RECORDS SUMMARY | 2024-04-02 16:36 | XMS_ITS | Encounter Summary ---
Author Organization [employer] Address [address] [place] [address] 7 [place] [address] Care Team Providers Care Reimbursement Auditor Name Role Phone Migdalia Cox Primary Care Provider [phone] Reason for Visit * Reason Comments Pre-visit Planning Pre-visit planning - LVM Encounter Details Date Type Department Care Team ([facility] st Contact Info) Description 03/06/2024 Patient Outreach [facility] 230 [place], [place] [phone] Migdalia Cox ANP 230 [place] [address] Pre-visit Planning (Pre-visit planning - LVM ) Social History Tobacco Use Types Packs/Day Years [...] AM EDT documented as of this encounter Progress Notes * Joyce Whitaker - 03/06/2024 3:16 PM EST CC Joyce Joshi placed outbound call to patient to complete pre-visit planning. No answer at this time. Patient name and were not confirmed. CC left voicemail requesting return call. Direct contact information provided. documented in this encounter Plan of Treatment Not on file documented as of this encounter Visit Diagnoses Not on filedocumented in this encounter Additional Health Concerns Assessment Noted Time PHQ-9 Depression Total Score: 4 12/20/19 24 3:05 PM EDT documented as of this encounter Care Teams Reimbursement Auditor Relationship Specialty Start Date End Date Migdalia Cox ANP [address] [place] [phone] PCP - General Family Medicine 12/17/22 documented as of this encounter
--- OUTSIDE RECORDS SUMMARY | 2024-04-02 16:36 | XMS_ITS | Encounter Summary ---
Author Organization [employer] Address [address] [place] [address] [place] [address] Care Team Providers Care Mill Platform Supervisor Name Role Phone Anitra Toscano Primary Care Provider [phone] Laura Doan DIP TUBE ASSEMBLER MACHINE Primary Care Provider [phone] Migdalia Cox Primary Care Provider [phone] Reason for Visit * Reason Onset Date Comments Nurse Triage 09/10/2022 Encounter Details Date Type Department Care Team (Late st Contact Info) Description 09/10/2022 Telephone [facility] [address] [place] [address] Anitra Toscano FNP [address] [place] [address] Dept [place] [address] Nurse Triage Social History Tobacco Use Types Packs/Day Years [...] encounter Miscellaneous Notes * Telephone Encounter - Olena Mckeon RN - 09/10/2022 12:47 PM EDT Triage call Pt reports had the flu 2 weeks ago and since then asthma has been much worse. Pt reports frequent wheezing, using albuterol hand held inhaler up to 12x/day and nebulizer treatment 3-4x/day. Pt is asking ton be seen by provider due to breathing difficulties. Pt is unable to get a ride, uber ride scheduled for Pt . Pt is advised to come to [facility] today to be seen by provider and Pt agrees. Pt is advised to look for uber arrival and Pt agrees. Home care reviewed. Insurance is verified as active prior to booking. Protocol Used: Asthma Attack (Adult) Protocol-Based Disposition: See in Office or Video Visit Today or Tomorrow Video visit not offered Positive Triage Question: * Mild wheezing comes and goes and lasts > 3 days * All higher-acuity triage questions were negative Care Advice Discussed: * Reassurance and Education - Mild Asthma Attack * Asthma Attack - Symptoms * Asthma Attack - Treatment - Quick-Relief Medicine * Asthma Attack - Treatment - Controller Medicine * Drink Plenty of Liquids and Use a Humidifier * Remove Allergens * Reasons To Call Back - An asthma attack is not better after 2 or 3 quick-relief treatments (such as albuterol by inhaleror nebulizer) 20 minutes apart. - Quick-relief asthma medicine (such as albuterol by inhaler or nebulizer) is needed more often than every 4 hours - Mild asthma symptoms not better after 24 hours - Mild wheezing or other asthma symptoms come and go for more than 3 days - You become worse * Telephone Encounter - Lolis Hassan - 09/10/2022 12:04 PM EDT Symptom: Wheezing Outcome: Schedule an urgent appointment (within 1 hour) or talk to a nurse or provider soon Reason: Getting worse The caller accepted this outcome Please contact at [phone] documented in this encounter Plan of Treatment Not on file documented as of this encounter Visit Diagnoses Not on filedocumented in this encounter Care Teams Mill Platform Supervisor Relationship Specialty Start Date End Date Anitra Toscano FNP PCP - General Family Medicine 12/23/20 12/06/22 Laura Doan NP [address] [place] [address] PCP - General Family Medicine 12/07/22 12/16/22 Migdalia Cox ANP [address] [place] [address] PCP - General Family Medicine 12/17/22 documented as of this encounter
--- OUTSIDE RECORDS SUMMARY | 2024-04-02 16:36 | XMS_ITS | Encounter Summary ---
Author Organization [employer] Address [address] [place] [address] 7 [place] [address] Care Team Providers Care Television Installer Name Role Phone Migdalia Cox Primary Care Provider [phone] Reason for Visit * Reason Comments Med Refill Encounter Details Date Type Department Care Team ([facility] Contact Info) Description 05/31/2023 Refill [facility] 230 [place], [place] [phone] Migdalia Cox ANP [address] [place] [address] Impotence of organic origin Social History Tobacco [...] documented as of this encounter Care Teams Television Installer Relationship Specialty Start Date End Date Migdalia Cox ANP [address] [place] [address] PCP - General Family Medicine 12/17/22 documented as of this encounter
== END 2024-04-02 12:44 | disposition home or self-care (01) ==
LOC: HO.HAP 12:43
PROVIDERS: Visit Provider Nurse Practitioner Primary Care
DX: Z46.1 Encounter for fitting and adjustment of hearing aid (principal); H90.3 Sensorineural hearing loss, bilateral
CPT/HCPCS: 92595; V5011; V5020; V5160; V5261

== ENCOUNTER 2024-04-13 13:45 | Outpatient (REF) | payer MEDICAID, SELFPAY | END 2024-04-13 13:46 | disposition home or self-care (01) | LOC: HO.HHCX 13:45 | PROVIDERS: Visit Provider Internal Medicine | DX: J45.31 Mild persistent asthma with (acute) exacerbation (principal) | CPT/HCPCS: 71046 ==

== ENCOUNTER → 2024-04-13 13:45 | Outpatient (BNV) | payer MEDICAID, SELFPAY | PROVIDERS: Visit Provider Radiology Diagnostic Radiology | DX: J45.31 Mild persistent asthma with (acute) exacerbation (principal) | CPT/HCPCS: 71046 ==

== ENCOUNTER 2024-07-17 10:53 | Outpatient (REF) | payer MEDICAID, SELFPAY ==
--- OUTSIDE RECORDS SUMMARY | 2024-07-17 11:24 | XMS_ITS | Encounter Summary ---
Author Organization [employer] Address [address] [facility] 7t [place] [address] Care Team Providers Care Tape Machine Tailer Name Role Phone Migdalia Cox Primary Care Provider [phone] Reason for Visit * Reason Comments Med Refill Encounter Details Date Type Department Care Team ([facility] Contact Info) Description 12/27/2023 Refill [facility] 230 [place], [place] [phone] Vanesa John MD 230 [place], [place] [phone] Mild persistent asthma without complication Social History [...] documented as of this encounter Care Teams Tape Machine Tailer Relationship Specialty Start Date End Date Migdalia Cox ANP [address] [place] [address] PCP - General Family Medicine 12/17/22 documented as of this encounter
--- OUTSIDE RECORDS SUMMARY | 2024-07-17 11:24 | XMS_ITS | Encounter Summary ---
Author Organization [employer] Address [address] [place] [address] 7 [place] [address] Care Team Providers Care Arts And Sciences Dean Name Role Phone Anitra Toscano Primary Care Provider [phone] Laura Doan SUPERVISOR LEAD BURNING Primary Care Provider [phone] Migdalia Cox Primary Care Provider Reason for Visit * Reason Onset Date Comments Letter for School/Work 09/11/2022 Encounter Details Date Type Department Care Team (Late st Contact Info) Description 09/11/2022 Telephone [facility] [address] [place] [phone] Anitra Toscano FNP [address] [place] [address] Dept [place] [address] Letter for School/Work Social History Tobacco Use [...] appointment. Any questions, Please contact pt at [phone] documented in this encounter Plan of Treatment Not on file documented as of this encounter Visit Diagnoses Not on filedocumented in this encounter Care Teams Arts And Sciences Dean Relationship Specialty Start Date End Date Anitra Toscano FNP PCP - General Family Medicine 12/23/20 12/06/22 Laura Doan NP [address] [place] [address] PCP - General Family Medicine 12/07/22 12/16/22 Migdalia Cox ANP [address] [place] [address] PCP - General Family Medicine 12/17/22 documented as of this encounter
--- OUTSIDE RECORDS SUMMARY | 2024-07-17 11:24 | XMS_ITS | Encounter Summary ---
Author Organization [employer] Address [address] [place] [address] 7 [place] [address] Care Team Providers Care Impregnating Machine Operator Name Role Phone Migdalia Cox Primary Care Provider [phone] Reason for Visit * Reason Onset Date Comments Created in error 09/17/2023 Encounter Details Date Type Department Care Team ([facility] Contact Info) Description 09/17/[address] [facility] 230 [place], [place] [phone] Migdalia Cox ANP 230 [place], [place] [phone] Created in error Social History Tobacco Use [...] documented as of this encounter Care Teams Impregnating Machine Operator Relationship Specialty Start Date End Date Migdalia Cox ANP [address] [place] [address] PCP - General Family Medicine 12/17/22 documented as of this encounter
--- OUTSIDE RECORDS SUMMARY | 2024-07-17 11:24 | XMS_ITS | Clinical Summary ---
Author Organization [employer] Address [address] [place] [address] 7t [place] [address] Care Team Providers Care Pulmonary Fellow Name Role Phone Migdalia Cox Primary Care Provider [phone] Allergies No known active allergies Medications Blood Pressure Monitoring (Omron 3 Series BP Monitor) device USE TO CHECK BLOOD PRESSURE DAILY 2 Active fluticasone (Flonase) 50 MCG/ACT nasal spray Administer 1 spray into affected nostril(s) every 12 (twelve) hours. 1 Active montelukast (Singulair) 10 MG tabletIndications :Moderate [...] OR CHEW. 180 capsule 1 4 Active azithromycin (Zithromax) 250 MG tablet Take 2 tabs PO daily x 1d then 1 tab PO daily on D2 to D5 6 tablet 5 Active Arnuity Ellipta 100 MCG/ACT inhaler Inhale 1 puff Once per day. 5 Active Ventolin HFA 108 (90 Base) MCG/ACT inhalerIndication s:Moderate persistent asthma without complication,Dysl ipidemia INHALE 2 PUFFS BY MOUTH EVERY 6 HOURS 18 g 3 5 Active albuterol (2.5 MG/3ML) 0.083% nebulizer solution INHALE 1 AMPULE USING A NEBULIZER EVERY 4 TO 6 HOURS NEEDED 90 mL 3 5 Active sildenafil (Viagra) 100 MG tabletIndications :Impotence of organic origin TAKE 1 TABLET 1 HOUR BEFORE SEXUAL RELATIONS ONCE DAILY NEEDED. 15 tablet 1 5 Active Active Problems Problem Noted Date Diagnosed Date Mild persistent asthma with exacerbation 025 Assessment & Plan (04/13/2024 1:41 PM EST): Patient receive albuterol inhaler x 2 today, advised to continue every 6 hours for the next 5 days then as needed Z-Mango x 5 days, order checks x-ray Advised to start using fluticasone inhaler daily and follow-up with PCP Advised to stop smoking (THC) Return to clinic as needed worsening of symptoms Dental abscess 11/01/2023 Dental caries extending into [...] Encounters Date Type Department Care Team Description 07/07/2024 Refill [facility] [address] [place] [address] Migdalia Cox ANP Impotence of organic origin 06/05/2024 Refill [facility] [address] [place] [address] Migdalia Cox ANP Impotence of organic origin 05/15/2024 Population Health Risk Score Community Care [facility] (C3) Department [address] [phone] Provider, Population Health Generic 05/14/2024 Refill [facility] [address] [place] [address] Migdalia Cox ANP Impotence of organic origin 05/06/2024 Refill [facility] [address] [place] [address] Migdalia Cox ANP Moderate persistent asthma without complication; Dyslipidemia from Last 3 Months Immunizations Immunization Administration Dates Next Due Hep B, Adolescent or Pediatric 12/26/2001,2001 Influenza injectable quadrivalent preservative f ree 04/09/2019 Pneumococcal Polysaccharide PPSV23 10/23/2007 TD (adult), 2 Lf tetanus tox oid, preservative free, adsorbed 10/23/2007,09/23/1995 Tdap 04/09/2019 Zoster, Recombinant 09/20/2021 Social History Tobacco Use Types Packs/Day Years Used Date Smoking Tobacco: Former Cigarettes Passive Smoke Exposure: Never Smokeless Tobacco: Never Tobacco Cessation:Counseling Given: Not Answered Alcohol Use Standard Drinks/Week Comments Not Currently [...] the past 12 months, has t he [employer], oil or water [email or web address] threatened to shut off services in your [...] Sign Reading Time Taken Comments Blood Pressure 148/78 04/13/2024 11:53 AM EST Pulse 90 04/13/2024 11:53 AM EST Temperature 36.7 ??C (98 ??F) 04/13/2024 11:53 AM EST Respiratory Rate 16 04/13/2024 11:53 AM EST Oxygen Saturation 98% 04/13/2024 11:53 AM EST RA Inhaled Oxygen Concentration - - Weight 95 [...] 3-dose series) 09/17/1986 12/26/2001, 07/15/2001 Pneumococcal Vaccine: 50+ Years (2 of 2 - PCV) 10/22/2008 10/23/2007 Zoster Vaccines (2 of 2) 11/15/2021 09/20/2021 COVID-19 Vaccine (3 - 2023-2 5 season) 2023 11/29/2020, 10/18/2020 Influenza Vaccine (#1) 2023 04/09/2019 SDOH Screening 01/29/2024 01/28/2023 Depression Screening 12/19/2024 12/20/2023, 12/20/2023 Alcohol/Substance Use Screening 01/22/2025 01/23/2024 Tobacco Screening 04/13/2025 04/13/2024 Dental X-Ray: Full Mouth 11/01/2026 11/01/2023 Lipid [...] patient's age to complete this topic Meningococcal B Vaccine Aged Out No l onger eligible based on patient's age to complete [...] 2:55 PM EST) Triglycerides 139 <150 mg/dL [facility] Comment:Desirable Triglyceri de: less than 150 mg/dLBorderline High Triglyceride 150-199 mg/dLHigh Triglyceride: 200-499 mg/dLVery High Triglyceride: greater than or equal to 5OO mg/dL Cholesterol 205(H) <200 mg/dL [facility] Comment:Desirable Cholestero l: less than 200 mg/dLBorderline High Cholesterol: 200-239 mg/dLHigh Cholesterol: greater than 239 mg/dL LDL Cholesterol Calculated 135(H) <100 mg/dL [facility] Comment:Desirable LDL: less than 100 mg/dLNear Optimal/Above Optimal LDL: 110- 129 mg/dLBorderline High LDL: 130-159 mg/dLHigh LDL: 160-189 mg/dLVery High LDL: greater than or equal to 190 mg/dL HDL Cholesterol 43 >40 mg/dL [facility] Comment:Desirable HDL: great er than 40 mg/dL Note: This HDL assay may give artificially low results in patients with liver disease. Blood Venous blood specimen / Unknown 02/04/2023 2:55 PM EST 02/04/2023 3:49 PM EST [facility] LAB BLOOD ORDERABLES Final Resul t [facility] [address] [place] [phone] * HIV 1/2 ANTIGEN/ANTIBODY,FOURTH GENERATION W/RFL (10/04/2021 4:52 PM EDT) HIV-1/2 ANTIGEN AND ANTIBODIES, 4TH GENERATION W/ [...] ? For additional information please refer to http://education.[employer]coin/faq/ZSP081 (This link is being provided for informational/ educational purposes only.) ? The performance of this assay has not been clinically validated in patients less than 2 years old. ?? 10/04/2021 4:52 PM EDT Anitra Toscano [employer] LAB BLOOD ORDERABLES Final Result [facility] Anywhere [address] from Last 3 Months or Most Recently Relevant to Health Maintenance Insurance [facility] MEDICAID STAND ADULT Care Teams Pulmonary Fellow Relationship Specialty Start Date End Date Migdalia Cox ANP [address] [place] [address] PCP - General Family Medicine 12/17/22
--- OUTSIDE RECORDS SUMMARY | 2024-07-17 11:24 | XMS_ITS | Encounter Summary ---
Author Organization [employer] Address [address] [place] [address] 7 [place] [address] Care Team Providers Care Construction Economist Name Role Phone Migdalia Cox Primary Care Provider [phone] Reason for Visit * Reason Comments Med Refill Encounter Details Date Type Department Care Team ([facility] Contact Info) Description 05/31/2023 Refill [facility] [address] [place], [place] [phone] Migdalia Cox ANP 230 [place] [address] Impotence of organic origin Social History Tobacco [...] documented as of this encounter Care Teams Construction Economist Relationship Specialty Start Date End Date Migdalia Cox ANP [address] [place] [address] PCP - General Family Medicine 12/17/22 documented as of this encounter
--- OUTSIDE RECORDS SUMMARY | 2024-07-17 11:24 | XMS_ITS | Encounter Summary ---
Author Organization [employer] Address [address] [place] [address] 7 [place] [address] Care Team Providers Care Correctional Counselor/Case Manager Name Role Phone Migdalia Cox Primary Care Provider [phone] Reason for Visit * Reason Comments Med Refill Encounter Details Date Type Department Care Team ([facility] Contact Info) Description 09/16/2023 Refill [facility] 230 [place], [place] [phone] Migdalia Cox ANP 230 [place], [place] [phone] Impotence of organic origin Social History Tobacco [...] documented as of this encounter Care Teams Correctional Counselor/Case Manager Relationship Specialty Start Date End Date Migdalia Cox ANP [address] [place] [address] PCP - General Family Medicine 12/17/22 documented as of this encounter
--- OUTSIDE RECORDS SUMMARY | 2024-07-17 11:24 | XMS_ITS | Clinical Summary ---
Author Organization [facility] it Address [address] [place] [address] Care Team Providers Care Travel Med Surg Rn Name Role Phone Unavailable Primary Care Provider Unavailabl e Social History Tobacco Use Types Packs/Day Years Used Date Smoking Tobacco: Never Assessed Sex and Gender Information Value Date Recorded Sex Assigned at Not on file Legal Sex Male 4:57 PM EST Gender Identity Not on file Sexual Orientation Not on file Plan of Treatment Health Maintenance Due Date Last Done Comments DTaP,Tdap,and Td Vaccines (1 - Tdap) 09/17/1986 Hepatitis B Vaccines (1 of 3 - 19+ 3-dose series) 09/17/1986 Pneumococcal Vaccine: 50+ Ye ars (1 of 1 - PCV) 09/17/2017 Zoster Vaccines (1 of 2) 09/17/2017 Cholesterol Screening (Lipid Panel) 01/31/2022 Colorectal Cancer Screening: Colonoscopy 01/31/2022 Depression Screening 01/31/2022 HIV Screening 01/31/2022 Hepatitis C Screening 01/31/2022 Social Influencers of Health Screening 01/31/2022 COVID-19 Vaccine ( - 2023-2 5 season) 2023 Influenza Vaccine (Season Ended) 2024 HIB Vaccines Aged Out No longer eligi [...]
--- OUTSIDE RECORDS SUMMARY | 2024-07-17 11:24 | XMS_ITS | Encounter Summary ---
Author Organization [employer] Address [address] [place] [address] 7 [place] [address] Care Team Providers Care Mental Health Professional Name Role Phone Migdalia Cox Primary Care Provider [phone] Reason for Visit * Reason Comments Med Refill Encounter Details Date Type Department Care Team ([facility] Contact Info) Description 08/30/2023 Refill [facility] [address] [place], [place] [phone] Migdalia Cox ANP [address] [place], [place] [phone] Impotence of organic origin Social History Tobacco [...] documented as of this encounter Care Teams Mental Health Professional Relationship Specialty Start Date End Date Migdalia Cox ANP [address] [place] [address] PCP - General Family Medicine 12/17/22 documented as of this encounter
--- OUTSIDE RECORDS SUMMARY | 2024-07-17 11:24 | XMS_ITS | Encounter Summary ---
Author Organization [employer] Address [address] [place] [address] 7 [place] [address] Care Team Providers Care Manufacturing Production Manager Name Role Phone Migdalia Cox Primary Care Provider [phone] Reason for Visit * Reason Comments Med Refill Encounter Details Date Type Department Care Team ([facility] Contact Info) Description 04/16/2023 Refill [facility] [address] [place], [place] [phone] Migdalia Cox ANP 230 [place] [address] Impotence of organic origin Social History Tobacco [...] documented as of this encounter Care Teams Manufacturing Production Manager Relationship Specialty Start Date End Date Migdalia Cox ANP [address] [place] [address] PCP - General Family Medicine 12/17/22 documented as of this encounter
--- OUTSIDE RECORDS SUMMARY | 2024-07-17 11:24 | XMS_ITS | Encounter Summary ---
Author Organization [employer] Address [address] [place] [address] 7 [place] [address] Care Team Providers Care Avian Keeper Name Role Phone Migdalia Cox Primary Care Provider [phone] Reason for Visit * Reason Onset Date Comments Durable Medical Equipment 09/23/2023 Encounter Details Date Type Department Care Team ([facility] Contact Info) Description 09/23/2023 Telephone [facility] MEDICINE [address] [place], [place] [phone] Migdalia Cox ANP [address] [place] [address] Durable Medical Equipment Social History Tobacco Use [...] further discussion you can contact pt/spouse at [phone]. documented in this encounter Plan of Treatment Not on file documented as of this encounter Visit Diagnoses Not on filedocumented in this encounter Additional Health Concerns Assessment Noted Time PHQ-9 Depression Total Score: 16 023 2:01 PM EST documented as of this encounter Care Teams Avian Keeper Relationship Specialty Start Date End Date Migdalia Cox ANP [address] [place] [address] PCP - General Family Medicine 12/17/22 documented as of this encounter
--- OUTSIDE RECORDS SUMMARY | 2024-07-17 11:24 | XMS_ITS | Encounter Summary ---
Author Organization [employer] Address 75 [facility] 7t [place] [address] Care Team Providers Care Outsoles Channel Opener Name Role Phone Migdalia Cox Primary Care Provider Reason for Visit * Reason Comments Med Refill Encounter Details Date Type Department Care Team ([facility] Contact Info) Description 05/14/2024 Refill [facility] 230 [place], [place] [phone] Migdalia Cox ANP 230 [place] [address] Impotence of organic origin Social History Tobacco [...] documented as of this encounter Care Teams Outsoles Channel Opener Relationship Specialty Start Date End Date Midgalia Cox ANP [address] [place] [address] PCP - General Family Medicine 12/17/22 documented as of this encounter
--- OUTSIDE RECORDS SUMMARY | 2024-07-17 11:24 | XMS_ITS | Encounter Summary ---
Author Organization [employer] Address 75 [facility] 7t [place] [address] Care Team Providers Care Carbon Furnace Operator Name Role Phone Migdalia Cox Primary Care Provider [phone] Reason for Visit * Reason Comments Med Refill Encounter Details Date Type Department Care Team ([facility] Contact Info) Description 07/07/2024 Refill [facility] 230 [place], [place] [phone] Migdalia Cox ANP 230 [place] [address] Impotence of organic origin Social History Tobacco [...] documented as of this encounter Care Teams Carbon Furnace Operator Relationship Specialty Start Date End Date Migdalia Cox ANP [address] [place] [address] PCP - General Family Medicine 12/17/22 documented as of this encounter
== END 2024-07-17 10:54 | disposition home or self-care (01) ==
LOC: HO.HAP 10:53
DX: Z13.89 Encounter for screening for other disorder (principal)

== ENCOUNTER 2024-07-22 10:52 | Outpatient (REF) | payer MEDICAID, SELFPAY ==
--- OUTSIDE RECORDS SUMMARY | 2024-07-22 12:19 | XMS_ITS | Encounter Summary ---
Author Organization [employer] Address 75 [facility] 7t [place] [address] Care Team Providers Care Rear Admiral Name Role Phone Migdalia Cox Primary Care Provider [phone] Reason for Visit * Reason Comments Med Refill Encounter Details Date Type Department Care Team ([facility] Contact Info) Description 05/14/2024 Refill [facility] 230 [place], [place] [phone] Migdalia Cox ANP 230 [place] [address] Impotence of organic origin Social History Tobacco [...] documented as of this encounter Care Teams Rear Admiral Relationship Specialty Start Date End Date Migdalia Cox ANP [address] [place] [address] PCP - General Family Medicine 12/17/22 documented as of this encounter
--- OUTSIDE RECORDS SUMMARY | 2024-07-22 12:19 | XMS_ITS | Encounter Summary ---
Author Organization [employer] Address [address] [place] [address] 7 [place] [address] Care Team Providers Care Fabricator Industrial Furnace Name Role Phone Migdalia Cox Primary Care Provider [phone] Reason for Visit * Reason Comments Med Refill Encounter Details Date Type Department Care Team ([facility] Contact Info) Description 09/16/2023 Refill [facility] 230 [place], [place] [phone] Migdalia Cox ANP 230 [place], [place] [phone] Impotence of organic origin Social History Tobacco [...] documented as of this encounter Care Teams Fabricator Industrial Furnace Relationship Specialty Start Date End Date Migdalia Cox ANP [address] [place] [address] PCP - General Family Medicine 12/17/22 documented as of this encounter
--- OUTSIDE RECORDS SUMMARY | 2024-07-22 12:19 | XMS_ITS | Encounter Summary ---
Author Organization [employer] Address 75 [facility] 7t [place] [address] Care Team Providers Care Family Consumer Science Teacher Name Role Phone Migdalia Cox GUY Primary Care Provider [phone] Reason for Visit * Reason Comments Med Refill Encounter Details Date Type Department Care Team ([facility] Contact Info) Description 12/27/2023 Refill [facility] 230 [place], [place] [phone] Vanesa John MD 230 [place], [place] [phone] Mild persistent asthma without complication Social History [...] documented as of this encounter Care Teams Family Consumer Science Teacher Relationship Specialty Start Date End Date Migdalia Cox ANP [address] [place] [address] PCP - General Family Medicine 12/17/22 documented as of this encounter
--- OUTSIDE RECORDS SUMMARY | 2024-07-22 12:19 | XMS_ITS | Encounter Summary ---
Author Organization [employer] Address 75 [facility] 7t [place] [address] Care Team Providers Care Visual Coordinator Name Role Phone Migdalia Cox Primary Care Provider [phone] Reason for Visit * Reason Comments Med Refill Encounter Details Date Type Department Care Team ([facility] Contact Info) Description 07/07/2024 Refill [facility] 230 [place], [place] [phone] Migdalia Cox ANP 230 [place] [address] Impotence of organic origin Social History Tobacco [...] documented as of this encounter Care Teams Visual Coordinator Relationship Specialty Start Date End Date Migdalia Cox ANP [address] [place] [address] PCP - General Family Medicine 12/17/22 documented as of this encounter
--- OUTSIDE RECORDS SUMMARY | 2024-07-22 12:19 | XMS_ITS | Encounter Summary ---
Author Organization [employer] Address [address] [place] [address] 7 [place] [address] Care Team Providers Care Table Assembler Metal Name Role Phone Migdalia Cox Primary Care Provider [phone] Reason for Visit * Reason Comments Med Refill Encounter Details Date Type Department Care Team ([facility] Contact Info) Description 04/16/2023 Refill [facility] 230 [place], [place] [phone] Migdalia Cox ANP 230 [place], [place] [phone] Impotence of organic origin Social History Tobacco [...] documented as of this encounter Care Teams Table Assembler Metal Relationship Specialty Start Date End Date Migdalia Cox ANP [address] [place] [address] PCP - General Family Medicine 12/17/22 documented as of this encounter
--- OUTSIDE RECORDS SUMMARY | 2024-07-22 12:19 | XMS_ITS | Clinical Summary ---
Author Organization [employer] Address [address] [place] [address] 7t [place] [address] Care Team Providers Care Software Applications Engineer Name Role Phone Migdalia Cox Primary Care Provider [phone] Allergies No known active allergies Medications Blood [...] Type Department Care Team Description 07/07/2024 Refill [facility] 230 [place] [address] Migdalia Cox ANP Impotence of organic origin 06/05/2024 Refill [facility] 230 [place] [address] Migdalia Cox ANP Impotence of organic origin 05/15/2024 Population Health Risk Score Community Care [facility] (C3) Department [address] [phone] Provider, Population Health Generic 05/14/2024 Refill [facility] [address] [place] [address] Migdalia Cox ANP Impotence of organic origin 05/06/2024 Refill [facility] [address] [place] [address] Migdalia Cox ANP Moderate persistent asthma without [...] the past 12 months, has t he [employer] oil or water [employer] threatened to shut off services in your [...] 1967 FIT 1967 FOBT 1967 Sigmoidoscopy 1967 Disability Screening 1967 Hepatitis C Screening 09/17/1985 Hepatitis B [...] 2:55 PM EST) Triglycerides 139 <150 mg/dL [facility] Comment:Desirable Triglyceri de: less than 150 mg/dLBorderline High Triglyceride 150-199 mg/dLHigh Triglyceride: 200-499 mg/dLVery High Triglyceride: greater than or equal to 5OO mg/dL Cholesterol 205(H) <200 mg/dL [facility] Comment:Desirable Cholestero l: less than 200 mg/dLBorderline High Cholesterol: 200-239 mg/dLHigh Cholesterol: greater than 239 mg/dL LDL Cholesterol Calculated 135(H) <100 mg/dL [facility] Comment:Desirable LDL: less than 100 mg/dLNear Optimal/Above Optimal LDL: 110- 129 mg/dLBorderline High LDL: 130-159 mg/dLHigh LDL: 160-189 mg/dLVery High LDL: greater than or equal to 190 mg/dL HDL Cholesterol 43 >40 mg/dL [facility] Comment:Desirable HDL: great er than 40 mg/dL Note: This HDL assay may give artificially low results in patients with liver disease. Blood Venous blood specimen / Unknown 02/04/2023 2:55 PM EST 02/04/2023 3:49 PM EST [facility] LAB BLOOD ORDERABLES Final Resul t [facility] [address] [place] [phone] * HIV 1/2 ANTIGEN/ANTIBODY,FOURTH GENERATION W/RFL (10/04/2021 4:52 PM EDT) HIV-1/2 ANTIGEN AND ANTIBODIES, 4TH GENERATION W/ REFLEX NON-REACT OSCAR NON-REACT OSCAR [facility] Comment: HIV-1 antigen and HIV-1/HIV-2 [...] ? For additional information please refer to http://education.[employer]/faq/QCM399 (This link is being provided for informational/ educational purposes only.) ? The performance of this assay has not been clinically validated in patients less than 2 years old. ?? 10/04/2021 4:52 PM EDT Anitra Garveyon HARNESS BUILDER LAB BLOOD ORDERABLES Final Result [facility] [address] from Last 3 Months or Most Recently Relevant to Health Maintenance Insurance C3 DENTAL-[facility] MEDICAID STAND ADULT Care Teams Software Applications Engineer Relationship Specialty Start Date End Date Migdalia Cox ANP [address] [place] [address] PCP - General Family Medicine 12/17/22
--- OUTSIDE RECORDS SUMMARY | 2024-07-22 12:19 | XMS_ITS | Encounter Summary ---
Author Organization [employer] Address [address] [place] [address] 7 [place] [address] Care Team Providers Care Teaching Manager Name Role Phone Anitra Toscano Primary Care Provider [phone] Laura Doan CLERICAL METHODS ANALYST Primary Care Provider [phone] Migdalia Cox Primary Care Provider [phone] Reason for Visit * Reason Onset Date Comments Letter for School/Work 09/11/2022 Encounter Details Date Type Department Care Team (Late st Contact Info) Description 09/11/[address] [facility] MEDICINE [address] [place] [phone] Anitra Toscano FNP [address] [place] [address] [place] [address] Letter for School/Work Social History Tobacco Use [...] appointment. Any questions, Please contact pt at [phone] documented in this encounter Plan of Treatment Not on file documented as of this encounter Visit Diagnoses Not on filedocumented in this encounter Care Teams Teaching Manager Relationship Specialty Start Date End Date Anitra Toscano FNP PCP - General Family Medicine 12/23/20 12/06/22 Laura Doan NP [address] [place] [address] PCP - General Family Medicine 12/07/22 12/16/22 Migdalia Cox ANP [address] [place] [address] PCP - General Family Medicine 12/17/22 documented as of this encounter
--- OUTSIDE RECORDS SUMMARY | 2024-07-22 12:19 | XMS_ITS | Encounter Summary ---
Author Organization [employer] Address [address] [place] [address] 7 [place] [address] Care Team Providers Care Scratch Finisher Name Role Phone Migdalia Cox Primary Care Provider [phone] Reason for Visit * Reason Onset Date Comments Created in error 09/17/2023 Encounter Details Date Type Department Care Team ([facility] Contact Info) Description 09/17/2023 Telephone [facility] MEDICINE 230 [place], [place] [phone] Migdalia Cox ANP 230 [place], [place] [phone] Created in error Social History Tobacco Use [...] documented as of this encounter Care Teams Scratch Finisher Relationship Specialty Start Date End Date Migdalia Cox ANP [address] [place] [address] PCP - General Family Medicine 12/17/22 documented as of this encounter
--- OUTSIDE RECORDS SUMMARY | 2024-07-22 12:19 | XMS_ITS | Encounter Summary ---
Author Organization [employer] Address [address] [place] [address] 7 [place] [address] Care Team Providers Care Barrel Loader And Cleaner Name Role Phone Migdalia Cox Primary Care Provider [phone] Reason for Visit * Reason Comments Med Refill Encounter Details Date Type Department Care Team ([facility] Contact Info) Description 08/30/2023 Refill [facility] MEDICINE 230 [place], [place] [phone] Migdalia Cox ANP 230 [place], [place] [phone] Impotence of organic origin Social History Tobacco [...] documented as of this encounter Care Teams Barrel Loader And Cleaner Relationship Specialty Start Date End Date Migdalia Cox ANP [address] [place] [address] PCP - General Family Medicine 12/17/22 documented as of this encounter
--- OUTSIDE RECORDS SUMMARY | 2024-07-22 12:19 | XMS_ITS | Clinical Summary ---
Author Organization [facility] it Address [address] [place] [address] Care Team Providers Care Assessment Consultant Name Role Phone Unavailable Primary Care Provider [...]
--- OUTSIDE RECORDS SUMMARY | 2024-07-22 12:19 | XMS_ITS | Encounter Summary ---
Author Organization [employer] Address [address] [place] [address] 7 [place] [address] Care Team Providers Care Camp Director Name Role Phone Migdalia Cox Primary Care Provider [phone] Reason for Visit * Reason Comments Med Refill Encounter Details Date Type Department Care Team ([facility] Contact Info) Description 05/31/2023 Refill [facility] MEDICINE 230 [place], [place] [phone] Migdalia Cox ANP 230 [place], [place] [phone] Impotence of organic origin Social History Tobacco [...] documented as of this encounter Care Teams Camp Director Relationship Specialty Start Date End Date Migdalia Cox ANP [address] [place] [address] PCP - General Family Medicine 12/17/22 documented as of this encounter
--- OUTSIDE RECORDS SUMMARY | 2024-07-22 12:19 | XMS_ITS | Encounter Summary ---
Author Organization [employer] Address [address] [place] [address] 7 [place] [address] Care Team Providers Care Retrimmer Name Role Phone Migdalia Cox Primary Care Provider Reason for Visit * Reason Onset Date Comments Durable Medical Equipment 09/23/2023 Encounter Details Date Type Department Care Team ([facility] Contact Info) Description 09/23/2023 Telephone [facility] MEDICINE 230 [place], [place] [phone] Migdalia Cox ANP 230 [place], [place] [phone] Durable Medical Equipment Social History Tobacco Use [...] further discussion you can contact pt/spouse at [phone]. documented in this encounter Plan of Treatment Not on file documented as of this encounter Visit Diagnoses Not on filedocumented in this encounter Additional Health Concerns Assessment Noted Time PHQ-9 Depression Total Score: 16 023 2:01 PM EST documented as of this encounter Care Teams Retrimmer Relationship Specialty Start Date End Date Migdalia Cox ANP [address] [place] [address] PCP - General Family Medicine 12/17/22 documented as of this encounter
== END 2024-07-22 10:53 | disposition home or self-care (01) ==
LOC: HO.HAP 10:52
PROVIDERS: Visit Provider Nurse Practitioner Primary Care
DX: Z13.89 Encounter for screening for other disorder (principal)

== ENCOUNTER 2024-08-04 11:01 | Outpatient (REF) | payer MEDICAID, SELFPAY ==
--- OUTSIDE RECORDS SUMMARY | 2024-08-04 12:40 | XMS_ITS | Encounter Summary ---
Author Organization [employer] Address [address] [place] [address] 7 [place] [address] Care Team Providers Care Financial Aid Manager Name Role Phone Migdalia Cox Primary Care Provider [phone] Reason for Visit * Reason Comments Med Refill Encounter Details Date Type Department Care Team ([facility] Contact Info) Description 04/16/2023 Refill [facility] MEDICINE 230 [place], [place] [phone] Migdalia Cox ANP 230 [place], [place] [phone] Impotence of organic origin Social History Tobacco [...] as of this encounter Plan of Treatment Upcoming Encounters Date Type Department Care Team (Late [facility] Contact Info) Description 08/05/2024 2:30 PM EDT Clinical Support [facility] MEDICINE 230 [place] [address] documented as of this encounter Visit Diagnoses Diagnosis Impotence of organic origin documented in this encounter Additional Health Concerns Assessment Noted Time PHQ-9 Depression Total Score: 16 023 2:01 PM EST documented as of this encounter Care Teams Financial Aid Manager Relationship Specialty Start Date End Date Migdalia Cox ANP 230 [place] [address] PCP - General Family Medicine 12/17/22 documented as of this encounter
== END 2024-08-04 11:02 | disposition home or self-care (01) ==
LOC: HO.HAP 11:01
DX: Z13.89 Encounter for screening for other disorder (principal)

== ENCOUNTER 2024-08-06 15:17 | Outpatient (REF) | payer MEDICAID, SELFPAY ==
--- OUTSIDE RECORDS SUMMARY | 2024-08-06 17:50 | XMS_ITS | Encounter Summary ---
Author Organization [employer] Address [address] [place] [address] 7 [place] [address] Care Team Providers Care Stem Roller Operator Name Role Phone Migdalia Cox Primary Care Provider [phone] Reason for Visit * Reason Comments Med Refill Encounter Details Date Type Department Care Team ([facility] Contact Info) Description 04/16/2023 Refill [facility] MEDICINE 230 [place], [place] [phone] Migdalia Cox ANP 230 [place], [place] [phone] Impotence of organic origin Social History Tobacco [...] documented as of this encounter Care Teams Stem Roller Operator Relationship Specialty Start Date End Date Migdalia Cox ANP [address] [place] [address] PCP - General Family Medicine 12/17/22 documented as of this encounter
== END 2024-08-06 15:18 | disposition home or self-care (01) ==
LOC: HO.HAP 15:17
PROVIDERS: PCP Nurse Practitioner Primary Care; Visit Provider Nurse Practitioner Primary Care
DX: Z13.89 Encounter for screening for other disorder (principal)

== ENCOUNTER 2024-09-14 15:05 | Outpatient (REF) | payer MEDICAID, SELFPAY ==
--- OUTSIDE RECORDS SUMMARY | 2024-09-14 16:21 | XMS_ITS | Clinical Summary ---
Author Organization 175 [facility] Address 175 [place] [address] Phone Care Team Providers Care Orthotist Prosthetist Name Role Phone Physician, Pcp Unknown Primary Care Provider Jacki vailable Social History Tobacco Use Types Packs/Day Years Used Date Smoking Tobacco: Never Assessed Sex and Gender Information Value Date Recorded Sex Assigned at Not on file Legal Sex Male 4:57 PM EST Gender Identity Not on file Sexual Orientation Not on file Plan of Treatment Upcoming Encounters Date Type Department Care Team ([facility] Contact Info) Description 10/27/2024 9:30 AM EDT Office Visit Orthopedic Surgery - [place] [address] [phone] Gaurav Avila DPM [address] [address] Health Maintenance Due Date Last Done Comments [...] - 2023-2 5 season) 2023 Influenza Vaccine (#1) 2024 HIB Vaccines Aged Out No longer [...] on patient's age to complete this topic Insurance MEDICAID - [place] Care Teams Orthotist Prosthetist Relationship Specialty Start Date End Date Physician, Pcp Unknown PCP - General 07/24/24
--- OUTSIDE RECORDS SUMMARY | 2024-09-14 16:21 | XMS_ITS | Encounter Summary ---
Author Organization [employer] Address [address] [place] [address] 7 [place] [address] Care Team Providers Care Rough And Truing Machine Operator Name Role Phone Migdalia Cox Primary Care Provider [phone] Reason for Visit * Reason Comments Med Refill Encounter Details Date Type Department Care Team ([facility] Contact Info) Description 04/16/2023 Refill [facility] MEDICINE 230 [place], [place] [phone] Migdalia Cox ANP 230 [place], [place] [phone] Impotence of organic origin Social History Tobacco [...] documented as of this encounter Care Teams Rough And Truing Machine Operator Relationship Specialty Start Date End Date Migdalia Cox ANP [address] [place] [address] PCP - General Family Medicine 12/17/22 documented as of this encounter
== END 2024-09-14 15:06 | disposition home or self-care (01) ==
LOC: HO.HAP 15:05
PROVIDERS: Visit Provider Nurse Practitioner Primary Care
DX: Z13.89 Encounter for screening for other disorder (principal)

== ENCOUNTER 2024-09-17 11:56 | Outpatient (REF) | payer MEDICAID, SELFPAY ==
--- OUTSIDE RECORDS SUMMARY | 2024-09-17 12:40 | XMS_ITS | Clinical Summary ---
Author Organization 175 [facility] Address 175 [place] [address] Phone Care Team Providers Care Stock Sheets Cleaner Inspector Name Role Phone Physician, Pcp Unknown Primary Care Provider Jacki vailable Social History Tobacco Use Types Packs/Day Years Used Date Smoking Tobacco: Never Assessed Sex and Gender Information Value Date Recorded Sex Assigned at Not on file Legal Sex Male 4:57 PM EST Gender Identity Not on file Sexual Orientation Not on file Plan of Treatment Upcoming Encounters Date Type Department Care Team ([facility] Contact Info) Description 10/27/2024 9:30 AM EDT Office Visit Orthopedic Surgery - [place] [address] [phone] Gaurav Avila DPM [address] [address] Health Maintenance Due Date Last Done Comments [...] topic Insurance MEDICAID - [place] Care Teams Stock Sheets Cleaner Inspector Relationship Specialty Start Date End Date Physician, Pcp Unknown PCP - General 07/24/24
--- OUTSIDE RECORDS SUMMARY | 2024-09-17 12:40 | XMS_ITS | Encounter Summary ---
Author Organization [employer] Address [address] [place] [address] 7 [place] [address] Care Team Providers Care Asset Protection Agent Name Role Phone Migdalia Cox Primary Care Provider [phone] Reason for Visit * Reason Comments Med Refill Encounter Details Date Type Department Care Team ([facility] Contact Info) Description 04/16/2023 Refill [facility] MEDICINE 230 [place], [place] [phone] Migdalia Cox ANP 230 [place], [place] [phone] Impotence of organic origin Social History Tobacco [...] documented as of this encounter Care Teams Asset Protection Agent Relationship Specialty Start Date End Date Migdalia Cox ANP [address] [place] [address] PCP - General Family Medicine 12/17/22 documented as of this encounter
== END 2024-09-17 11:57 | disposition home or self-care (01) ==
LOC: HO.SH 11:56
DX: Z13.89 Encounter for screening for other disorder (principal)

== ENCOUNTER 2024-10-12 10:18 | Outpatient (REF) | payer MEDICAID, SELFPAY ==
--- OUTSIDE RECORDS SUMMARY | 2024-10-12 10:55 | XMS_ITS | Encounter Summary ---
Author Organization [employer] Address [address] [facility] 7t [place] [address] Care Team Providers Care Mine Promotor Name Role Phone Migdalia Cox GUY Primary Care Provider [phone] Reason for Visit * Reason Comments Med Refill Encounter Details Date Type Department Care Team ([facility] Contact Info) Description 12/27/2023 Refill [facility] MEDICINE 230 [place], [place] [phone] Vanesa John MD 230 [place], [place] [phone] Mild persistent asthma without complication Social History [...] documented as of this encounter Care Teams Mine Promotor Relationship Specialty Start Date End Date Migdalia Cox ANP [address] [place] [address] PCP - General Family Medicine 12/17/22 documented as of this encounter
--- OUTSIDE RECORDS SUMMARY | 2024-10-12 10:55 | XMS_ITS | Clinical Summary ---
Author Organization [facility] Address [address] [facility] [address] [place] [address] Phone Care Team Providers Care Hearing Aid Repair Technician Name Role Phone Pcp, Unknown Primary Care Provider Unavailabl e Allergies No known active allergies Medications acetaminophen (TYLENOL) 650 MG CR tablet Take 650 mg by mouth every 8 (eight) hours as needed for pain (specific location in comments). Active amoxicillin (AMOXIL) 500 MG capsule Take 500 mg by mouth 3 (three) times a day. Active ibuprofen (ADVIL,MOTRIN) 800 MG tablet Take 800 mg by mouth every 6 (six) hours as needed for pain (specific location in comments). Active oxyCODONE 5 MG immediate release tablet Take 1 tablet (5 mg total) by mouth every 4 (four) hours as needed. Partial fill ok 12 tablet 11/03/2023 Active Social History Tobacco Use Types Packs/Day Years Used Date Smoking Tobacco: Never Smokeless Tobacco: Never Tobacco Cessation:Counseling Given: Not Answered Alcohol Use Standard Drinks/Week Comments Not Currently 0 (1 standard drink = 0.6 oz pur e alcohol) Education Answer Date Recorded Are you interested in more education? Not on agustin e 11/03/2023 Are you concerned about learning? Not on file 11/03/2023 No 11/03/2023 No 11/03/2023 Digital Access Answer Date Recorded No 11/03/2023 No 11/03/2023 Reliable internet access at home? Not on file 11/03/2023 Device with a working camera? Not on file Intimate Partner Violence Answer Date R ecorded Are you denied basic needs s uch as food, clothing, or medical care? No 11/03/2023 In the past 12 months have y ou been in a relationship with a person who hurts, threatens, or tries to control you? No 11/03/2023 Are you denied basic needs s uch as food, clothing, or medical care? No 11/03/2023 In the past 12 months have y ou been in a relationship with a person who hurts, threatens, or tries to control you? No 11/03/2023 Sex and Gender Information Value Date Recorded Sex Assigned at Male 11/03/2023 10:48 AM EDT Legal Sex Male 10:33 AM EDT Gender Identity Male 11/03/2023 10:48 AM EDT Sexual Orientation Straight 11/03/2023 10 :48 AM EDT Last Filed Vital Signs Vital Sign Reading Time Taken Comments Blood Pressure 172/101 11/03/2023 2:19 PM EDT Pulse 67 11/03/2023 2:19 PM EDT Temperature 36.9 C (98.5 F) 11/03/2023 2:19 PM EDT Respiratory Rate 18 11/03/2023 2:19 PM EDT Oxygen Saturation 98% 11/03/2023 2:19 PM EDT Inhaled Oxygen Concentration - - Weight 90.7 kg (200 lb) 11/03/2023 10:45 AM EDT Height 167.6 cm (5' 6 ) 11/03/2023 10:45 AM EDT Body Mass Index 32.28 11/03/2023 10:45 AM EDT Plan of Treatment Health Maintenance Due Date Last Done Comments DEPRESSION SCREENING 1979 HEPATITIS C SCREENING 09/17/1985 HIV ONE-TIME SCREENING (18-6 5 YEARS) 09/17/1985 SCREENING FOR DIABETES 09/17/2002 COLOGUARD 09/17/2012 COLONOSCOPY 09/17/2012 COLORECTAL CANCER SCREENING 09/17/2012 FIT TEST 09/17/2012 FOBT 09/17/2012 SIGMOIDOSCOPY 09/17/2012 VIRTUAL COLONOSCOPY 09/17/2012 PNEUMOCOCCAL VACCINES (50+ y ears) (2 of 2 - PCV) 09/17/2017 10/23/2007 ZOSTER VACCINES (1 of 2) 09/17/2017 COVID-19 VACCINE (1 - 2023-2 5 season) 2023 LIPID PANEL 02/05/2028 02/04/2023 Adult Td,Tdap Booster 04/09/2029 04/09/2019 SMOKING STATUS SCREENING (On ce After 26 Yrs) Completed 11/03/2023 HEPATITIS A VACCINES Aged Out No long er eligible based on patient's age to complete this topic HIB VACCINES Aged Out No longer eligi ble based on patient's age to complete this topic MENINGOCOCCAL VACCINES (ACWY) Aged Out No longer eligible based on patient's age to complete this topic MENINGOCOCCAL VACCINES (B) Aged Out N o longer eligible based on patient's age to complete this topic Medical Devices Not on file Insurance [employer] Care Teams Hearing Aid Repair Technician Relationship Specialty Start Date End Date Pcp, Unknown PCP - General 11/03/23 Additional Source Comments The information contained in this document represents components of the legal health record. It is not the complete legal health record.[facility]
--- OUTSIDE RECORDS SUMMARY | 2024-10-12 10:55 | XMS_ITS | Clinical Summary ---
Author Organization 175 [facility] Address 175 [place] [address] Phone Care Team Providers Care Mobile Equipment Mechanic Name Role Phone Physician, Pcp Unknown Primary Care Provider Jacki vailable Social History Tobacco Use Types Packs/Day Years Used Date Smoking Tobacco: Never Assessed Sex and Gender Information Value Date Recorded Sex Assigned at Not on file Legal Sex Male 4:57 PM EST Gender Identity Not on file Sexual Orientation Not on file Plan of Treatment Upcoming Encounters Date Type Department Care Team ([facility] Contact Info) Description 10/27/2024 9:30 AM EDT Office Visit Orthopedic Surgery - [place] [address] [phone] Gaurav Avila DPM [address] [address] Health Maintenance Due Date Last Done Comments DTaP,Tdap,and Td Vaccines (1 - Tdap) 09/17/1986 Hepatitis B Vaccines (1 of 3 - 19+ 3-dose series) 09/17/1986 Pneumococcal Vaccine: 50+ Ye ars (1 of 1 - PCV) 09/17/2017 Zoster Vaccines (1 of 2) 09/17/2017 Cholesterol Screening (Lipid Panel) 01/31/2022 Colorectal Cancer Screening: Colonoscopy 01/31/2022 HIV Screening 01/31/2022 Hepatitis C Screening 01/31/2022 Social Influencers of Health Screening 01/31/2022 COVID-19 Vaccine (1 - 2023-2 5 season) 2023 Depression Screening 03/04/2024 Influenza Vaccine (#1) 2024 HIB Vaccines Aged [...] topic Insurance MEDICAID - [place] Care Teams Mobile Equipment Mechanic Relationship Specialty Start Date End Date Physician, Pcp Unknown PCP - General 07/24/24
== END 2024-10-12 10:19 | disposition home or self-care (01) ==
LOC: HO.HAP 10:18
PROVIDERS: Visit Provider Internal Medicine Geriatric Medicine
DX: Z13.89 Encounter for screening for other disorder (principal)

== ENCOUNTER 2024-10-15 12:57 | Outpatient (REF) | payer MEDICAID, SELFPAY ==
--- OUTSIDE RECORDS SUMMARY | 2024-10-15 13:47 | XMS_ITS | Encounter Summary ---
Author Organization [email or web address] Address [address] [facility] 7t [place] [address] Care Team Providers Care Account Liaison Name Role Phone Migdalia Cox GUY Primary Care Provider [phone] Reason for Visit * Reason Comments Med Refill Encounter Details Date Type Department Care Team ([facility] Contact Info) Description 12/27/2023 Refill [facility] MEDICINE 230 [place], [place] [phone] Vanesa John MD 230 [place], [place] [phone] Mild persistent asthma without complication Social History [...] documented as of this encounter Care Teams Account Liaison Relationship Specialty Start Date End Date Migdalia Cox ANP [address] [place] [address] PCP - General Family Medicine 12/17/22 documented as of this encounter
--- OUTSIDE RECORDS SUMMARY | 2024-10-15 13:49 | XMS_ITS | Clinical Summary ---
Author Organization 175 [facility] Address 175 [place] [address] Phone Care Team Providers Care Flat Bed Operator Name Role Phone Physician, Pcp Unknown Primary Care Provider Jacki vailable Social History Tobacco Use Types Packs/Day Years Used Date Smoking Tobacco: Never Assessed Sex and Gender Information Value Date Recorded Sex Assigned at Not on file Legal Sex Male 4:57 PM EST Gender Identity Not on file Sexual Orientation Not on file Plan of Treatment Upcoming Encounters Date Type Department Care Team ([facility] Contact Info) Description 10/27/2024 9:30 AM EDT Office Visit Orthopedic Surgery - [place] [address] [phone] Gaurav Avila DPM [address] [address] Health Maintenance Due Date Last Done Comments [...] topic Insurance MEDICAID - [place] Care Teams Flat Bed Operator Relationship Specialty Start Date End Date Physician, Pcp Unknown PCP - General 07/24/24
--- OUTSIDE RECORDS SUMMARY | 2024-10-15 13:49 | XMS_ITS | Clinical Summary ---
Author Organization [facility] Address [address] [facility] [address] [place] [address] Phone Care Team Providers Care Branch Account Executive Name Role Phone Pcp, Unknown Primary Care [...] on file Insurance [employer] Care Teams Branch Account Executive Relationship Specialty Start Date End Date Pcp, Unknown PCP - General 11/03/23 Additional Source Comments The information contained in this document represents components of the legal health record. It is not the complete legal health record.[facility]
== END 2024-10-15 12:58 | disposition home or self-care (01) ==
LOC: HO.HAP 12:57
DX: Z13.89 Encounter for screening for other disorder (principal)

== ENCOUNTER 2024-11-26 14:29 | Outpatient (REF) | payer MEDICAID, SELFPAY ==
--- OUTSIDE RECORDS SUMMARY | 2024-11-26 18:51 | XMS_ITS | Encounter Summary ---
Author Organization [employer] Address [address] [place] [address] 7 [place] [address] Care Team Providers Care Pediatric Surgeon Name Role Phone Migdalia Cox Primary Care Provider [phone] Reason for Visit * Reason Comments Med Refill Encounter Details Date Type Department Care Team ([facility] Contact Info) Description 05/31/2023 Refill [facility] MEDICINE 230 [place], [place] [phone] Migdalia Cox ANP 230 [place], [place] [phone] Impotence of organic origin Social History Tobacco [...] documented as of this encounter Care Teams Pediatric Surgeon Relationship Specialty Start Date End Date Migdalia Cox ANP [address] [place] [address] PCP - General Family Medicine 12/17/22 documented as of this encounter
--- OUTSIDE RECORDS SUMMARY | 2024-11-26 18:51 | XMS_ITS | Encounter Summary ---
Author Organization [employer] Address [address] [place] [address] 7 [place] [address] Care Team Providers Care Clearing Inspector Name Role Phone Migdalia Cox GUY Primary Care Provider [phone] Reason for Visit * Reason Comments Med Refill Encounter Details Date Type Department Care Team ([facility] Contact Info) Description 11/17/2024 Refill [facility] 230 [place], [place] [phone] Luma Ibrahim MD 230 [place], [place] [phone] Impotence of organic origin Social History Tobacco [...] is your housing situation today? I have ninoskajoelle major 01/28/[address] you [...] documented as of this encounter Care Teams Clearing Inspector Relationship Specialty Start Date End Date Migdalia Cox ANP [address] [place] [address] PCP - General Family Medicine 12/17/22 documented as of this encounter
--- OUTSIDE RECORDS SUMMARY | 2024-11-26 18:51 | XMS_ITS | Clinical Summary ---
Author Organization [facility] Address [address] [facility] [address] [place] [address] Phone Care Team Providers Care Crane Man Name Role Phone Pcp, Unknown Primary Care [...] 10/23/2007 ZOSTER VACCINES (1 of 2) 09/17/2017 INFLUENZA VACCINE (#1) 2024 COVID-19 VACCINE (1 - 2023-2 5 season) 2024 LIPID PANEL 02/05/2028 02/04/2023 Adult Td,Tdap Booster [...] on file Insurance [employer] Care Teams Crane Man Relationship Specialty Start Date End Date Pcp, Unknown PCP - General 11/03/23 Additional Source Comments The information contained in this document represents components of the legal health record. It is not the complete legal health record.[facility]
--- OUTSIDE RECORDS SUMMARY | 2024-11-26 18:51 | XMS_ITS | Encounter Summary ---
Author Organization [employer] Address [address] [place] [address] 7 [place] [address] Care Team Providers Care Inletter Name Role Phone Migdalia Cox Primary Care Provider [phone] Reason for Visit * Reason Comments Med Refill Encounter Details Date Type Department Care Team ([facility] Contact Info) Description 04/16/2023 Refill [facility] MEDICINE 230 [place], [place] [phone] Migdalia Cox ANP 230 [place], [place] [phone] Impotence of organic origin Social History Tobacco [...] documented as of this encounter Care Teams Inletter Relationship Specialty Start Date End Date Migdalia Cox ANP [address] [place] [address] PCP - General Family Medicine 12/17/22 documented as of this encounter
--- OUTSIDE RECORDS SUMMARY | 2024-11-26 18:51 | XMS_ITS | Encounter Summary ---
Author Organization [employer] Address [address] [place] [address] 7 [place] [address] Care Team Providers Care Laborer Cheesemaking Name Role Phone Migdalia Cox Primary Care Provider [phone] Reason for Visit * Reason Onset Date Comments Durable Medical Equipment 09/23/2023 Encounter Details Date Type Department Care Team ([facility] Contact Info) Description 09/23/2023 Telephone [facility] MEDICINE 230 [place], [place] [phone] Migdalia Cox ANP 230 [place], [place] [phone] Durable Medical Equipment Social History Tobacco Use [...] further discussion you can contact pt/spouse at [phone]. documented in this encounter Plan of Treatment Not on file documented as of this encounter Visit Diagnoses Not on filedocumented in this encounter Additional Health Concerns Assessment Noted Time PHQ-9 Depression Total Score: 16 023 2:01 PM EST documented as of this encounter Care Teams Laborer Cheesemaking Relationship Specialty Start Date End Date Migdalia Cox ANP [address] [place] [address] PCP - General Family Medicine 12/17/22 documented as of this encounter
--- OUTSIDE RECORDS SUMMARY | 2024-11-26 18:51 | XMS_ITS | Encounter Summary ---
Author Organization [employer] Address [address] [facility] 7 [place] [address] Care Team Providers Care Contract Sheltered Workshop Supervisor Name Role Phone Migdalia Cox GUY Primary Care Provider [phone] Reason for Visit * Reason Comments Med Refill Encounter Details Date Type Department Care Team ([facility] Contact Info) Description 12/27/2023 Refill [facility] MEDICINE 230 [place], [place] [phone] Vanesa John MD 230 [place], [place] [phone] Mild persistent asthma without complication Social History [...] documented as of this encounter Care Teams Contract Sheltered Workshop Supervisor Relationship Specialty Start Date End Date Migdalia Cox ANP [address] [place] [address] PCP - General Family Medicine 12/17/22 documented as of this encounter
--- OUTSIDE RECORDS SUMMARY | 2024-11-26 18:51 | XMS_ITS | Encounter Summary ---
Author Organization [employer] Address [address] [place] [address] 7 [place] [address] Care Team Providers Care Data Deliverables Manager Name Role Phone Migdalia Cox Primary Care Provider [phone] Reason for Visit * Reason Onset Date Comments Created in error 09/17/2023 Encounter Details Date Type Department Care Team ([facility] Contact Info) Description 09/17/2023 Telephone [facility] MEDICINE 230 [place], [place] [phone] Migdalia Cox ANP 230 [place], [place] [phone] Created in error Social History Tobacco Use [...] documented as of this encounter Care Teams Data Deliverables Manager Relationship Specialty Start Date End Date Migdalia Cox ANP [address] [place] [address] PCP - General Family Medicine 12/17/22 documented as of this encounter
--- OUTSIDE RECORDS SUMMARY | 2024-11-26 18:51 | XMS_ITS | Encounter Summary ---
Author Organization [employer] Address [address] [facility] 7t [place] [address] Care Team Providers Care Quahogger Name Role Phone Migdalia Cox Primary Care Provider [phone] Reason for Visit * Reason Comments Med Refill Encounter Details Date Type Department Care Team ([facility] Contact Info) Description 08/16/2024 Refill [facility] 230 [place], [place] [phone] Migdalia Cox ANP 230 [place], [place] [phone] Moderate persistent asthma without complication; Dyslipidemia Social History Tobacco Use Types Packs/Day Years [...] as of this encounter Visit Diagnoses Diagnosis Moderate persistent asthma without complication Dyslipidemia Other and unspecified hyperlipidemia documented in this encounter Additional Health Concerns Assessment Noted Time PHQ-9 Depression Total Score: 4 12/20/19 24 3:05 PM EDT documented as of this encounter Care Teams Quahogger Relationship Specialty Start Date End Date Migdalia Cox ANP 230 [place] [address] PCP - General Family Medicine 12/17/22 documented as of this encounter
--- OUTSIDE RECORDS SUMMARY | 2024-11-26 18:51 | XMS_ITS | Encounter Summary ---
Author Organization [employer] Address [address] [facility] 7t [place] [address] Care Team Providers Care Associate Doctor Name Role Phone Migdalia Cox Primary Care Provider [phone] Reason for Visit * Reason Comments Med Refill Encounter Details Date Type Department Care Team ([facility] Contact Info) Description 07/07/2024 Refill [facility] 230 [place], [place] [phone] Migdalia Cox ANP 230 [place] [address] Impotence of organic origin Social History Tobacco [...] documented as of this encounter Care Teams Associate Doctor Relationship Specialty Start Date End Date Migdalia Cox ANP [address] [place] [address] PCP - General Family Medicine 12/17/22 documented as of this encounter
--- OUTSIDE RECORDS SUMMARY | 2024-11-26 18:51 | XMS_ITS | Encounter Summary ---
Author Organization [employer] Address [address] [facility] 7t [place] [address] Care Team Providers Care Manager Fire Name Role Phone Migdalia Cox Primary Care Provider [phone] Reason for Visit * Reason Comments Med Refill Encounter Details Date Type Department Care Team ([facility] Contact Info) Description 09/01/2024 Refill [facility] 230 [place], [place] [phone] Migdalia Cox ANP 230 [place] [address] Impotence of organic origin Social History Tobacco [...] documented as of this encounter Care Teams Manager Fire Relationship Specialty Start Date End Date Migdalia oCx ANP [address] [place] [address] PCP - General Family Medicine 12/17/22 documented as of this encounter
--- OUTSIDE RECORDS SUMMARY | 2024-11-26 18:51 | XMS_ITS | Encounter Summary ---
Author Organization [employer] Address [address] [place] [address] 7t [place] [address] Care Team Providers Care Terrazzo Installer Name Role Phone Anitra Toscano Primary Care Provider Laura Sweet KEY PERSON Primary Care Provider [phone] Migdalia Cox Primary Care Provider [phone] Reason for Visit * Reason Onset Date Comments Letter for School/Work 09/11/2022 Encounter Details Date Type Department Care Team ([facility] Contact Info) Description 09/11/2022 Telephone [facility] MEDICINE 230 [place] [address] Anitra Toscano FNP Letter for School/Work Social History Tobacco Use [...] appointment. Any questions, Please contact pt at [phone] documented in this encounter Plan of Treatment Not on file documented as of this encounter Visit Diagnoses Not on filedocumented in this encounter Care Teams Terrazzo Installer Relationship Specialty Start Date End Date Anitra Toscano FNP PCP - General Family Medicine 12/23/20 12/06/22 Laura Doan NP [address] [place] [address] PCP - General Family Medicine 12/07/22 12/16/22 Migdalia Cox ANP [address] [place] [address] PCP - General Family Medicine 12/17/22 documented as of this encounter
--- OUTSIDE RECORDS SUMMARY | 2024-11-26 18:51 | XMS_ITS | Encounter Summary ---
Author Organization [employer] Address [address] [facility] 7t [place] [address] Care Team Providers Care Rehabilitation Therapy Technician Name Role Phone Migdalia Cox Primary Care Provider [phone] Reason for Visit * Reason Comments Med Refill Encounter Details Date Type Department Care Team ([facility] Contact Info) Description 05/14/2024 Refill [facility] 230 [place], [place] [phone] Migdalia Cox ANP 230 [place] [address] Impotence of organic origin Social History Tobacco [...] documented as of this encounter Care Teams Rehabilitation Therapy Technician Relationship Specialty Start Date End Date Migdalia Cox ANP [address] [place] [address] PCP - General Family Medicine 12/17/22 documented as of this encounter
--- OUTSIDE RECORDS SUMMARY | 2024-11-26 18:51 | XMS_ITS | Encounter Summary ---
Author Organization [employer] Address [address] [place] [address] 7 [place] [address] Care Team Providers Care Supervisor Hard Candy Name Role Phone Migdalia Cox Primary Care Provider [phone] Reason for Visit * Reason Comments Med Refill Encounter Details Date Type Department Care Team ([facility] Contact Info) Description 08/30/2023 Refill [facility] MEDICINE 230 [place], [place] [phone] Migdalia Cox ANP 230 [place], [place] [phone] Impotence of organic origin Social History Tobacco [...] documented as of this encounter Care Teams Supervisor Hard Candy Relationship Specialty Start Date End Date Migdalia Cox ANP [address] [place] [address] PCP - General Family Medicine 12/17/22 documented as of this encounter
--- OUTSIDE RECORDS SUMMARY | 2024-11-26 18:51 | XMS_ITS | Clinical Summary ---
Author Organization [employer] Address [address] [place] [address] 7t [place] [address] Care Team Providers Care Marketing Budget Analyst Name Role Phone Migdalia Cox Primary Care Provider [phone] Allergies No known active allergies Medications fluticasone (Flonase) 50 MCG/ACT nasal spray Administer 1 spray into affected nostril(s) every 12 (twelve) hours. 02/09/20 21 Active montelukast (Singulair) 10 MG tabletIndication s:Moderate persistent asthma without complication Take 1 tablet (10 mg) by mouth Once per day. 90 tablet 3 09/23/19 24 Active atorvastatin (Lipitor) 10 MG tabletIndication s:Dyslipidemia TAKE 1 TABLET BY MOUTH AT BEDTIME 90 tablet 3 12/09/19 24 Active omeprazole (PriLOSEC) [address] capsuleIndicatio ns:Peptic ulcer disease TAKE 1 CAPSULE (20 MG) BY MOUTH BEFORE BREAKFAST AND BEFORE EVENING MEAL. DO NOT CRUSH OR CHEW. 180 capsule 1 12/19/19 24 Active azithromycin (Zithromax) 250 MG tablet Take 2 tabs PO daily x 1d then 1 tab PO daily on D2 to D5 6 tablet 04/13/19 25 Active Arnuity Ellipta 100 MCG/ACT inhaler Inhale 1 puff Once per day. 03/05/19 25 Active bacitracin-polym yxin b (Polysporin) ointment Apply topically 2 times daily. Apply to affected area daily 30 g 1 07/23/19 25 Active Blood Pressure Monitoring (Omron 3 Series BP Monitor) device Apply 1 each topically 2 times daily. 1 each 07/23/19 25 Active Ventolin HFA 108 (90 Base) MCG/ACT inhalerIndicatio ns:Moderate persistent asthma without complication,Dys lipidemia INHALE 2 PUFFS BY MOUTH EVERY 6 HOURS 18 g 3 08/26/19 25 Active sildenafil (Viagra) 100 MG tabletIndication s:Impotence of organic origin TAKE 1 TABLET 1 HOUR BEFORE SEXUAL RELATIONS ONCE DAILY NEEDED. 15 tablet 1 09/09/19 25 Active albuterol (2.5 MG/3ML) 0.083% nebulizer solution INHALE 1 AMPULE USING A NEBULIZER EVERY 4 TO 6 HOURS NEEDED FOR WHEEZING OR SHORTNESS OF BREATH 90 mL 3 11/11/19 25 Active albuterol (2.5 MG/3ML) 0.083% nebulizer solution INHALE 1 AMPULE USING A NEBULIZER EVERY 4 TO 6 HOURS NEEDED 90 mL 3 07/31/19 25 025 Discontinued Active Problems Problem Noted Date Diagnosed Date [...] Encounters Date Type Department Care Team Description 11/17/2024 Refill [facility] 230 [place] [address] Luma Ibrahim MD Impotence of organic origin 11/09/2024 Refill [facility] 230 [place] [address] Migdalia Cox ANP 09/07/2024 Refill [facility] [address] [place] [address] Migdalia Cox ANP Impotence of organic origin 09/01/2024 Refill [facility] [address] [place] [address] Migdalia Cox ANP Impotence of organic origin from Last 3 Months Immunizations Immunization Administration [...] Sign Reading Time Taken Comments Blood Pressure 154/90 07/22/2024 3:05 PM EDT Pulse 96 07/22/2024 3:05 PM EDT Temperature 36.8 C (98.2 F) 07/22/2024 3:05 PM EDT Respiratory Rate 20 07/22/2024 3:05 PM EDT Oxygen Saturation 97% 07/22/2024 3:05 PM EDT Inhaled Oxygen Concentration - - Weight 92.1 kg (203 lb) 07/22/2024 3:05 PM EDT Height 167.6 cm (5' 6 ) 12/20/2023 2:28 PM EDT Body Mass Index 32.77 12/20/2023 2:28 PM EDT Plan of Treatment [...] Zoster Vaccines (2 of 2) 11/15/2021 09/20/2021 SDOH Screening 01/29/2024 01/28/2023 COVID-19 Vaccine (3 - 2024-2 6 season) 2024 11/29/2020, 10/18/2020 Influenza Vaccine (#1) 2024 04/09/2019 Depression Screening 12/19/2024 12/20/2023, 12/20/2023 Alcohol/Substance Use Screening 01/22/2025 01/23/2024 Tobacco Screening 07/22/2025 07/22/2024 Dental X-Ray: Full Mouth 11/01/2026 11/01/2023 Lipid [...] 2:55 PM EST) Triglycerides 139 <150 mg/dL [facility] Comment:Desirable Triglyceri de: less than 150 mg/dLBorderline High Triglyceride 150-199 mg/dLHigh Triglyceride: 200-499 mg/dLVery High Triglyceride: greater than or equal to 5OO mg/dL Cholesterol 205(H) <200 mg/dL [facility] Comment:Desirable Cholestero l: less than 200 mg/dLBorderline High Cholesterol: 200-239 mg/dLHigh Cholesterol: greater than 239 mg/dL LDL Cholesterol Calculated 135(H) <100 mg/dL [facility] Comment:Desirable LDL: less than 100 mg/dLNear Optimal/Above Optimal LDL: 110- 129 mg/dLBorderline High LDL: 130-159 mg/dLHigh LDL: 160-189 mg/dLVery High LDL: greater than or equal to 190 mg/dL HDL Cholesterol 43 >40 mg/dL [facility] Comment:Desirable HDL: great er than 40 mg/dL Note: This HDL assay may give artificially low results in patients with liver disease. Blood Venous blood specimen / Unknown 02/04/2023 2:55 PM EST 02/04/2023 3:49 PM EST Migdalia [facility] BLOOD ORDERABLES Final Resul t [facility] [address] [place] [address] [phone] * HIV 1/2 ANTIGEN/ANTIBODY,FOURTH GENERATION W/RFL (10/04/2021 4:52 PM EDT) HIV-1/2 ANTIGEN AND ANTIBODIES, 4TH GENERATION W/ REFLEX NON-REACT OSCAR NON-REACT OSCAR [facility] Comment: HIV-1 antigen and HIV-1/HIV-2 antibodies were not detected. There is no laboratory evidence of HIV infection. PLEASE NOTE: This information has been disclosed to you from records whose confidentiality may be protected by state law. If your state requires such protection, then the state law prohibits you from making any further disclosure of the information without the specific written consent of the person to whom it pertains, or as otherwise permitted by law. A general authorization for the release of medical or other information is NOT sufficient for this purpose. For additional information please refer to http://education.DataKraft/faq/RJU919 (This link is being provided for informational/ educational purposes only.) The performance of this assay has not been clinically validated in patients less than 2 years old. 10/04/2021 4:52 PM EDT us Anitra Sandy Toscano [employer] LAB BLOOD ORDERABLES Final Result [facility] Anywhere [address] from Last 3 Months or Most Recently Relevant to Health Maintenance [place] [address] [place] [address] [employer] MEDICAID STAND ADULT Care Teams Marketing Budget Analyst Relationship Specialty Start Date End Date Migdalia Cox ANP [address] [place] [address] PCP - General Family Medicine 12/17/22
--- OUTSIDE RECORDS SUMMARY | 2024-11-26 18:51 | XMS_ITS | Encounter Summary ---
Author Organization [employer] Address [address] [place] [address] 7 [place] [address] Care Team Providers Care Firing Pin Gauger Name Role Phone Migdalia Cox Primary Care Provider [phone] Reason for Visit * Reason Comments Med Refill Encounter Details Date Type Department Care Team ([facility] Contact Info) Description 09/16/2023 Refill [facility] MEDICINE 230 [place], [place] [phone] Migdalia Cox ANP 230 [place], [place] [phone] Impotence of organic origin Social History Tobacco [...] documented as of this encounter Care Teams Firing Pin Gauger Relationship Specialty Start Date End Date Migdalia Cox ANP [address] [place] [address] PCP - General Family Medicine 12/17/22 documented as of this encounter
== END 2024-11-26 14:30 | disposition home or self-care (01) ==
LOC: HO.HAP 14:29
PROVIDERS: Visit Provider Nurse Practitioner Primary Care
DX: Z13.89 Encounter for screening for other disorder (principal)